=== PATIENT | male | born 1980 | race Caucasian/White ===

== ENCOUNTER 2020-01-19 15:30 | Inpatient (IN) | payer OTHER ==
[2020-01-19] VITALS (8 sets, daily range): BP systolic 112–166; BP diastolic 65–88
[~2020-01-19] VITALS: Ht 193 cm; Wt 129.9 kg
[2020-01-19] MEDS ORDERED: HEPARIN for IV BOLUS 10,000 UNIT/10 ML VIAL. IV ONE (15:35)
--- NOTE | 2020-01-19 16:08 | PHYS DOC ---
Past Medical History Past Medical History: No Pertinent History (Does not see primary care chichomireya meghan, unknown medical history) Past Surgical History: No Surgical History Smoking Status: Current Every Day Smoker Alcohol Use: None Drug Use: None General Adult EDM: Chief Complaint: CHEST PAIN HPI: HPI: Patient is a 39 year old male who presents with lightheaded and dizziness. 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 He reportedly started feeling lightheaded, dizzy, and "felt like a bag of crap". Up until presentation, denied any overt chest pain. Patient went inside and due to ongoing symptoms, EMS was called by coworkers. On arrival, EMS reported elevated POC glucose greater than 500. An abnormal EKG was obtained and because of this, patient was diverted from [facility] to [facility]. Patient was administered 1L LR in route, no other intervention performed Review of Systems: Review of Systems: Constitutional: Denies fever or chills. Admits diaphoresis Eyes: Denies change in visual acuity. HENT: Denies nasal congestion or sore throat. Respiratory: Denies cough. Admits shortness of breath Cardiovascular: Denies chest pain or edema. GI: Denies abdominal pain, vomiting, bloody stools or diarrhea. Admits nausea : Denies dysuria. Musculoskeletal: Denies back pain or joint pain. Integument: Denies rash. Neurologic: Denies focal weakness or sensory changes. Admits mild headache Endocrine: Denies polyuria or polydipsia. Lymphatic: Denies swollen glands. Psychiatric: Denies depression or anxiety. Heart Score: HEART Score for Chest Pain: HEART Score for Chest Pain Response (Comments) Value History Highly Suspicious [address] Depression 2 Age < 45 0 Risk Factors >3 Risk Factors or Hx CAD 2 Troponin < Normal Limit 0 Total 6 Risk Factors: Risk Factors: DM, Current or recent (<one month) smoker, HTN, HLP, family history of CAD, obesity. Risk Scores: Score 0 - 3: 2.5% MACE over next 6 weeks - Discharge Home Score 4 - 6: 20.3% MACE over next 6 weeks - Admit for Clinical Observation Score 7 - 10: 72.7% MACE over next 6 weeks - Early Invasive Strategies Family History: Family History: Patient admits positive cardiac history in both mom and dad Current Medications: Current Medications Medications (Trade) Dose Ordered Sig/[place] Start Time Stop Time Status Last Admin Dose Admin Heparin Sodium (Porcine) (Heparin Sodium) 4,000 unit 1X ONCE 01/19/20 15:35 01/19/20 15:36 UNV 01/19/20 15:36 4,000 UNIT Allergies: Allergies: Allergies Coded Allergies Type Severity Reaction Last Updated Verified No Known Drug Allergies 01/19/20 No Physical Exam: PE: Constitutional: Well nourished, appears in moderate distress, diaphoretic, toxic appearing HENT: Normocephalic, atraumatic, bilateral external ears normal, oropharynx jd st, no oral exudates, nose normal. Eyes: PERRLA, EOMI, conjunctiva normal, no discharge. Neck: Normal range of motion, no tenderness, supple, no stridor. Cardiovascular:Heart rate regular rhythm, no murmur Lungs & Thorax: Bilateral breath sounds clear to auscultation Abdomen: Bowel sounds normal, soft, no tenderness, no masses, no pulsatile masses. Skin: Warm, diaphoretic, no erythema, no rash. Back: No tenderness, no CVA tenderness. Extremities: No tenderness, no cyanosis, no clubbing, ROM intact, no edema. Neurologic: Alert and oriented X 3, normal motor function, normal sensory function, no focal deficits noted. Psychologic: Anxious appearing, judgment normal, full capacity Current Patient Data: Vital Signs: Vital Signs Date Time Temp Pulse Resp B/P (MAP) Pulse Ox O2 Delivery O2 Flow Rate FiO2 01/19/20 15:30 98.7 84 20 130/68 (88) 100 Room Air 98.7 EKG: EKG: EMS EKG sent to our emergency department and interpreted by myself at 1452 as findings indicative of acute STEMI with ST elevation in leads II, 3, aVF with reciprocal changes in lateral leads. No axis deviation, intervals within appropriate limits. Repeat EKG was performed in room with myself and Dr. Hu present, confirmed STEMI findings in inferior leads. Please defer to Dr. Luna's EKG report for more detail Course & Med Decision Making: Course & Med Decision Making Pertinent outlying labs and Imaging studies reviewed. (See chart for details) Code STEMI called by myself prior to patient arrival. Patient greeted at doors of [facility] by myself and Dr. Luna. Extensive history and physical exam performed. After repeat EKG concerning for inferior STEMI, patient given 162 mg of aspirin, heparin bolused, and taken to [facility] immediately. On-call hospitalist called, case discussed regarding inferior STEMI and findings of elevated glucose and later reported hyperkalemia (6.7) when patient was in the [facility]. Discussed that patient had no known/previously diagnosed medical history as he does not seek care in outpatient setting. Patient to be admitted in inpatient status in CVICU for further care under Dr. Blayne Nettles Disclaimer: Tho Disclaimer: This electronic medical record was generated, in whole or in part, using a voice recognition dictation system. Departure Departure Impression: Primary Impression: ST elevation (STEMI) myocardial infarction Additional Impressions: Hyperglycemia Hyperkalemia Tobacco use Disposition: ADMITTED INPATIENT Admitting Physician: TOM Botello) Condition: CRITICAL Justicifation of Admission Dx: Justifications for Admission: Justification of Admission Dx: Yes RI: Acute STEMI BRITANY ROMEO DO Jan 19, 2020 16:07
[2020-01-19 16:09] LABS: BASO % 0 % (0-3); EOS # 0.1 x10^3/uL (0.0-0.7); EOS % 1 % (0-3); HEMATOCRIT 45.7 % (39.0-53.0); LYMPH # 1.9 x10^3/uL (1.0-4.8); LYMPH % 18 % (24-48); MEAN CORPUSCULAR HEMOGLOBIN 31 pg (25-35); MEAN CORPUSCULAR HGB CONC 35 g/dL (31-37); MEAN CORPUSCULAR VOLUME 89 fL (79-100); MONO # 0.9 x10^3/uL (0.0-1.1); MONO % 8 % (0-9); NEUT # 7.6 x10^3/uL (1.8-7.7); NEUT % 72 % (31-73); PLATELET COUNT 265 x10^3/uL (140-400); RED BLOOD COUNT 5.14 x10^6/uL (4.30-5.70); RED CELL DISTRIBUTION WIDTH 13.2 % (11.5-14.5); WHITE BLOOD COUNT 10.6 x10^3/uL (4.0-11.0)
[2020-01-19] MEDS ORDERED: BIVALIRUDIN 250 MG VIAL. IV ONE ×2 (16:17→16:30)
[2020-01-19 16:19] LABS: PROTHROMBIN TIME PATIENT 13.6 SEC (11.7-14.0)
[2020-01-19 16:23] LABS: ALBUMIN 4.7 g/dL (3.4-5.0); ALBUMIN/GLOBULIN RATIO 1.4 (1.0-1.7); CALCIUM 9.5 mg/dL (8.5-10.1); CREATININE 2.6 mg/dL (0.7-1.3); GFR 27.3; TOTAL BILIRUBIN 0.7 mg/dL (0.2-1.0); TOTAL PROTEIN 8.1 g/dL (6.4-8.2)
[2020-01-19 16:30] LABS: POTASSIUM 6.4 mmol/L (3.5-5.1)
[2020-01-19] MEDS ORDERED: IV NORMAL SALINE 1000ML BAG 1,000 ML IV ONE (16:30)
[2020-01-19] MEDS ORDERED: MIDAZOLAM HCL/PF 2 MG/2 ML VIAL. IV ONE (16:30)
[2020-01-19] MEDS ORDERED: LIDOCAINE 1% Multi-Dose 20 ML VIAL. INJ ONE (16:30)
[2020-01-19] MEDS ORDERED: ASPIRIN 325 MG TABLET PO ONE (16:30)
[2020-01-19] MEDS ORDERED: fentaNYL PF VIAL 100 MCG/2 ML VIAL IV ONE (16:30)
[2020-01-19] MEDS ORDERED: IODIXANOL 320 MG/ML 100 ML VIAL. IART ONE (16:30)
[2020-01-19] MEDS ORDERED: ASPIRIN 325 MG TABLET ONE (16:43)
[2020-01-19] MEDS ORDERED: TICAGRELOR 90 MG TABLET. ONE (16:43)
[2020-01-19] MEDS ORDERED: fentaNYL PF VIAL 100 MCG/2 ML VIAL ONE (16:44)
[2020-01-19] MEDS ORDERED: guaiFENesin ORAL 200 MG/10 ML LIQUID. PO PRN ×2 (16:45→18:00)
[2020-01-19] MEDS ORDERED: DOCUSATE SODIUM 100 MG CAPSULE. PO PRN ×2 (16:45→18:00)
[2020-01-19] MEDS ORDERED: MIDAZOLAM HCL/PF 2 MG/2 ML VIAL. ONE (16:45)
[2020-01-19] MEDS ORDERED: LORazepam 0.5 MG TABLET PO PRN ×2 (16:45→18:00)
[2020-01-19] MEDS ORDERED: DEXTROSE 50% 25 GM / 50ML DISP.SYRIN. IV PRN ×2 (16:45→18:00)
[2020-01-19] MEDS ORDERED: ACETAMINOPHEN 325 MG TABLET. PO PRN ×2 (16:45→18:00)
[2020-01-19] MEDS ORDERED: ZOLPIDEM 5 MG TABLET. PO PRN ×2 (16:45→18:00)
[2020-01-19] MEDS ORDERED: INSULIN REGULAR 100 UNIT/ML 3ML VIAL. IV ONE ×3 (16:45→19:00)
[2020-01-19] MEDS ORDERED: CALCIUM GLUCONATE 1,000 MG/10 ML VIAL. IVP ONE (16:45)
[2020-01-19] MEDS ORDERED: SODIUM BICARB ADULT 8.4% 50 MEQ/50 ML DISP.SYRIN. IV ONE (16:45)
[2020-01-19] MEDS ORDERED: ALBUTEROL SULFATE 2.5 MG/3 ML NEBU. NEB PRN ×2 (16:45→18:00)
[2020-01-19] MEDS ORDERED: TICAGRELOR 90 MG TABLET. PO ONE (16:45)
[2020-01-19] MEDS ORDERED: ONDANSETRON PF 4 MG/2 ML VIAL. IV PRN ×2 (16:45→18:00)
--- NOTE | 2020-01-19 16:45 | PDOC1 ---
History and Physical Date of Admission Date of Admission 01/19/2020 Identification/Chief Complaint Chief Complaint Chest pain Problems: (1) Hyperkalemia (2) Hyperglycemia (3) Tobacco use (4) ST elevation (STEMI) myocardial infarction Source Source: Chart review, Patient History of Present Illness History of Present Illness Patient is a 39-year-old gentleman with no significant past medical history except obesity who was in his usual state of health until today when he was working outside and he experienced lightheadedness. He thought it was the heat health a day given him the discomfort. He tried to go into a building cool off and come right back outside to work unfortunately patient continued to have lightheadedness and thought he was about to lose consciousness. His boss told him to seek medical attention and he started walking towards his truck when his symptoms got worse and he was unable to continue walking so he dropped his stool box managed to get into his truck where he pretty much collapsed. EMS was summoned to the scene and he was transported to our emergency department where he was found to have an acute ST elevation myocardial infarction. The patient is being seen post cardiac catheterization and is in no acute distress. I have discussed the results of his laboratory data his hypoglycemia and renal dysfunction. Reassurance has been provided all of his concerns were addressed to the best of my abilities, his father is at bedside. Patient was taken to the cardiac [facility] with the following results: Current Medications Current Medications Current Medications Medications (Trade) Dose Ordered Sig/[facility] Start Time Stop Time Status Last Admin Dose Admin Aspirin (Claus Aspirin) 325 mg 1X ONCE 01/19/20 16:30 01/19/20 16:32 DC Bivalirudin (Angiomax) 250 mg 1X ONCE 01/19/20 16:30 01/19/20 16:32 DC Fentanyl Citrate (Fentanyl 2ml Vial) 100 mcg 1X ONCE 01/19/20 16:30 01/19/20 16:32 DC Heparin Sodium (Porcine) (Heparin Sodium) 4,000 unit 1X ONCE 01/19/20 15:35 01/19/20 16:08 DC 01/19/20 15:36 4,000 UNIT Heparin Sodium/ Sodium Chloride (HEPARIN for ARTERIAL LINE FLUSH) 1,000 unit 1X ONCE 01/19/20 16:30 01/19/20 16:32 DC Iodixanol (Visipaque 320) 100 ml 1X ONCE 01/19/20 16:30 01/19/20 16:32 DC Lidocaine HCl (Lidocaine 1% 20ml Vial) 20 ml 1X ONCE 01/19/20 16:30 01/19/20 16:32 DC Midazolam HCl (Versed) 2 mg 1X ONCE 01/19/20 16:30 01/19/20 16:32 DC Sodium Chloride 1,000 ml @ 100 mls/hr 1X ONCE 01/19/20 16:30 01/20/20 02:29 Allergies Allergies Allergies Coded Allergies Type Severity Reaction Last Updated Verified No Known Drug Allergies 01/19/20 No ROS Review of System CONSTITUTIONAL: No fever or chills EYES: No recent changes SKIN: No rash or itching CARDIOVASCULAR: No chest pain, syncope, palpitations, or edema RESPIRATORY: No SOB or cough GASTROINTESTINAL: No nausea, vomiting or abdominal pain NEUROLOGICAL: No headaches or weakness ENDOCRINE: No cold or heat intolerance GENITOURINARY: No urgency or frequency of urination MUSCULOSKELETAL: No back pain or joint pain LYMPHATICS: No enlarged lymph nodes PSYCHIATRIC: No anxiety or depression Physical Exam Physical Exam GEN.: No apparent distress. Alert and oriented. HEENT: Head is normocephalic, atraumatic NECK: Supple. LUNGS: Clear to auscultation. HEART: RRR, S1, S2 present. Peripheral pulses intact ABDOMEN: Soft, nontender. Positive bowel sounds. EXTREMITIES: Without any cyanosis. NEUROLOGIC: Normal speech, normal tone PSYCHIATRIC: Normal affect, normal mood. SKIN: No ulcerations Vitals Vitals Vital Signs Date Time Temp Pulse Resp B/P (MAP) Pulse Ox O2 Delivery O2 Flow Rate FiO2 01/19/20 15:40 91 18 148/79 (102) 100 Room Air 01/19/20 15:30 98.7 98.7 Labs Labs Laboratory Tests Test 01/19/20 15:38 White Blood Count 10.6 x10^3/uL (4.0-11.0) Red Blood Count 5.14 x10^6/uL (4.30-5.70) Hemoglobin 16.0 g/dL (13.0-17.5) Hematocrit 45.7 % (39.0-53.0) Mean Corpuscular Volume 89 fL (79-100) Mean Corpuscular Hemoglobin 31 pg (25-35) Mean Corpuscular Hemoglobin Concent 35 g/dL (31-37) Red Cell Distribution Width 13.2 % (11.5-14.5) Platelet Count 265 x10^3/uL (140-400) Neutrophils (%) (Auto) 72 % (31-73) Lymphocytes (%) (Auto) 18 % (24-48) Monocytes (%) (Auto) 8 % (0-9) Eosinophils (%) (Auto) 1 % (0-3) Basophils (%) (Auto) 0 % (0-3) Neutrophils # (Auto) 7.6 x10^3/uL (1.8-7.7) Lymphocytes # (Auto) 1.9 x10^3/uL (1.0-4.8) Monocytes # (Auto) 0.9 x10^3/uL (0.0-1.1) Eosinophils # (Auto) 0.1 x10^3/uL (0.0-0.7) Basophils # (Auto) 0.0 x10^3/uL (0.0-0.2) Prothrombin Time 13.6 SEC (11.7-14.0) Prothromb Time International Ratio 1.1 (0.8-1.1) Activated Partial Thromboplast Time 43 SEC (24-38) Sodium Level 131 mmol/L (136-145) Potassium Level 6.4 mmol/L (3.5-5.1) Chloride Level 94 mmol/L (98-107) Carbon Dioxide Level 26 mmol/L (21-32) Anion Gap 11 (6-14) Blood Urea Nitrogen 19 mg/dL (8-26) Creatinine 2.6 mg/dL (0.7-1.3) Estimated GFR (Cockcroft-Gault) 27.3 BUN/Creatinine Ratio 7 (6-20) Glucose Level 494 mg/dL (70-99) Calcium Level 9.5 mg/dL (8.5-10.1) Total Bilirubin 0.7 mg/dL (0.2-1.0) Aspartate Amino Transf (AST/SGOT) 87 U/L (15-37) Alanine Aminotransferase (ALT/SGPT) 198 U/L (16-63) Alkaline Phosphatase 70 U/L (46-116) Troponin I Quantitative < 0.017 ng/mL (0.000-0.055) PD-Ynm-Z-Type Natriuretic Peptide 85 pg/mL (0-124) Total Protein 8.1 g/dL (6.4-8.2) Albumin 4.7 g/dL (3.4-5.0) Albumin/Globulin Ratio 1.4 (1.0-1.7) Laboratory Tests Test 01/19/20 15:38 White Blood Count 10.6 x10^3/uL (4.0-11.0) Red Blood Count 5.14 x10^6/uL (4.30-5.70) Hemoglobin 16.0 g/dL (13.0-17.5) Hematocrit 45.7 % (39.0-53.0) Mean Corpuscular Volume 89 fL (79-100) Mean Corpuscular Hemoglobin 31 pg (25-35) Mean Corpuscular Hemoglobin Concent 35 g/dL (31-37) Red Cell Distribution Width 13.2 % (11.5-14.5) Platelet Count 265 x10^3/uL (140-400) Neutrophils (%) (Auto) 72 % (31-73) Lymphocytes (%) (Auto) 18 % (24-48) Monocytes (%) (Auto) 8 % (0-9) Eosinophils (%) (Auto) 1 % (0-3) Basophils (%) (Auto) 0 % (0-3) Neutrophils # (Auto) 7.6 x10^3/uL (1.8-7.7) Lymphocytes # (Auto) 1.9 x10^3/uL (1.0-4.8) Monocytes # (Auto) 0.9 x10^3/uL (0.0-1.1) Eosinophils # (Auto) 0.1 x10^3/uL (0.0-0.7) Basophils # (Auto) 0.0 x10^3/uL (0.0-0.2) Prothrombin Time 13.6 SEC (11.7-14.0) Prothromb Time International Ratio 1.1 (0.8-1.1) Activated Partial Thromboplast Time 43 SEC (24-38) Sodium Level 131 mmol/L (136-145) Potassium Level 6.4 mmol/L (3.5-5.1) Chloride Level 94 mmol/L (98-107) Carbon Dioxide Level 26 mmol/L (21-32) Anion Gap 11 (6-14) Blood Urea Nitrogen 19 mg/dL (8-26) Creatinine 2.6 mg/dL (0.7-1.3) Estimated GFR (Cockcroft-Gault) 27.3 BUN/Creatinine Ratio 7 (6-20) Glucose Level 494 mg/dL (70-99) Calcium Level 9.5 mg/dL (8.5-10.1) Total Bilirubin 0.7 mg/dL (0.2-1.0) Aspartate Amino Transf (AST/SGOT) 87 U/L (15-37) Alanine Aminotransferase (ALT/SGPT) 198 U/L (16-63) Alkaline Phosphatase 70 U/L (46-116) Troponin I Quantitative < 0.017 ng/mL (0.000-0.055) VZ-Gej-G-Type Natriuretic Peptide 85 pg/mL (0-124) Total Protein 8.1 g/dL (6.4-8.2) Albumin 4.7 g/dL (3.4-5.0) Albumin/Globulin Ratio 1.4 (1.0-1.7) VTE Prophylaxis Ordered VTE Prophylaxis Devices: Yes VTE Pharmacological Prophylaxi: Yes Assessment/Plan Assessment/Plan Chest pain Status post cardiac catheterization PCI and stenting of the RCA Obesity with a BMI of 36 Hyperglycemia most likely new onset diabetes mellitus Acute renal failure Hyperkalemia secondary to the above Plan: Lasix calcium gluconate insulin therapy will check hemoglobin a1c lipid panel in the am further recommendations based on clinical course. Justicifation of Admission Dx: Justifications for Admission: Justification of Admission Dx: Comment: [place]: Acute STEMI MEL HYATT MD Jan 19, 2020 16:45
[2020-01-19 16:56] LABS: CALCIUM 8.7 mg/dL (8.5-10.1); CREATININE 2.3 mg/dL (0.7-1.3); GFR 31.5; POTASSIUM 5.7 mmol/L (3.5-5.1)
[2020-01-19] MEDS ORDERED: INSULIN LISPRO 300 UNITS/3 ML VIAL. SQ SCH (17:00)
[2020-01-19] MEDS: IV NORMAL SALINE 1000ML BAG 1,000 ML IV SCH (17:24)
--- NOTE | 2020-01-19 17:24 | PDOC2 ---
CONSULT Date of Consult Date of Consult DATE: 01/19/20 TIME: 17:18 Reason for Consult Reason for Consult: Dizziness and EKG consistent with an inferior ST elevated myocardial infarction Referring Physician Referring Physician: Dr. Cisneros Identification/Chief Complaint Chief Complaint Dizziness and lightheadedness Source Source: Chart review, Patient History of Present Illness Reason for Visit: The patient is a 39-year-old male who is been working outside throughout the day. He developed episodes of dizziness and lightheadedness and mild chest discomfort. Paramedics were called and his glucose was found to be greater than 500. His EKG showed ST elevation in the inferior leads. He was transported emergently to [place] emergency room and was met there upon arrival. The patient reported dizziness and lightheadedness. He did not have chest pain upon arrival. Immediate EKG again confirmed ST elevation in inferior leads. Heparin and aspirin were administered. Past Medical History Cardiovascular: HTN Past Surgical History Past Surgical History: No pertinent history Family History Family History: Hypertension Social History 1 pack per day ALCOHOL: none Current Problem List Problem List Problems Medical Problems: (1) Hyperglycemia Status: Acute (2) Hyperkalemia Status: Acute (3) ST elevation (STEMI) myocardial infarction Status: Acute (4) Tobacco use Status: Acute Current Medications Current Medications Current Medications Heparin Sodium (Porcine) (Heparin Sodium) 4,000 unit 1X ONCE IV Last adminis tered on 01/19/20at 15:36; Start 01/19/20 at 15:35; Stop 01/19/20 at 16:08; Status DC Bivalirudin (Angiomax) 250 mg STK-MED ONCE IV ; Start 01/19/20 at 16:17; Stop 01/19/20 at 16:17; Status DC Heparin Sodium/ Sodium Chloride (HEPARIN for ARTERIAL LINE FLUSH) 1,000 unit 1X ONCE IART Last administered on 01/19/20at 16:53; Start 01/19/20 at 16:30; Stop 01/19/20 at 16:32; Status DC Heparin Sodium/ Sodium Chloride (HEPARIN for ARTERIAL LINE FLUSH) 1,000 unit 1X ONCE IART Last administered on 01/19/20at 16:54; Start 01/19/20 at 16:30; Stop 01/19/20 at 16:32; Status DC Midazolam HCl (Versed) 2 mg 1X ONCE IV Last administered on 01/19/20at 16:54; Start 01/19/20 at 16:30; Stop 01/19/20 at 16:32; Status DC Fentanyl Citrate (Fentanyl 2ml Vial) 100 mcg 1X ONCE IV Last administered on 01/19/20at 16:55; Start 01/19/20 at 16:30; Stop 01/19/20 at 16:32; Status DC Iodixanol (Visipaque 320) 100 ml 1X ONCE IART Last administered on 01/19/20at 16:55; Start 01/19/20 at 16:30; Stop 01/19/20 at 16:32; Status DC Bivalirudin (Angiomax) 250 mg 1X ONCE IV Last administered on 01/19/20at 16:54; Start 01/19/20 at 16:30; Stop 01/19/20 at 16:32; Status DC Aspirin (Neighbor.ly Aspirin) 325 mg 1X ONCE PO Last administered on 01/19/20 16:54; Start 01/19/20 at 16:30; Stop 01/19/20 at 16:32; Status DC Lidocaine HCl (Lidocaine 1% 20ml Vial) 20 ml 1X ONCE INJ Last administered on 01/19/20at 16:54; Start 01/19/20 at 16:30; Stop 01/19/20 at 16:32; Status DC Sodium Chloride 1,000 ml @ 100 mls/hr 1X ONCE IV Last administered on 01/19/20at 16:05; Start 01/19/20 at 16:30; Stop 01/20/20 at 02:29 Ticagrelor (Brilinta) 180 mg 1X ONCE PO Last administered on 01/19/20at 16:54; Start 01/19/20 at 16:45; Stop 01/19/20 at 16:46; Status DC Ticagrelor (Brilinta) 90 mg STK-MED ONCE .ROUTE ; Start 01/19/20 at 16:43; Stop 01/19/20 at 16:43; Status DC Aspirin (Claus Aspirin) 325 mg STK-MED ONCE .ROUTE ; Start 01/19/20 at 16:43; Stop 01/19/20 at 16:43; Status DC Fentanyl Citrate (Fentanyl 2ml Vial) 100 mcg STK-MED ONCE .ROUTE ; Start 01/19/20 at 16:44; Stop 01/19/20 at 16:45; Status DC Midazolam HCl (Versed) 2 mg STK-MED ONCE .ROUTE ; Start 01/19/20 at 16:45; Stop 01/19/20 at 16:45; Status DC Ondansetron HCl (Zofran) 4 mg PRN Q4HRS PRN IV NAUSEA/VOMITING; Start 01/19/20 at 16:45 Zolpidem Tartrate (Ambien) 5 mg PRN QHS PRN PO INSOMNIA; Start 01/19/20 at 16:45 Acetaminophen (Tylenol) 650 mg PRN Q4HRS PRN PO TEMP OVER 100.4F OR MILD PAIN; Start 01/19/20 at 16:45 Docusate Sodium (Colace) 100 mg PRN BID PRN PO HARD STOOLS; Start 01/19/20 at 16:45 Albuterol Sulfate (Ventolin Neb Soln) 2.5 mg PRN Q4HRS PRN NEB SHORTNESS OF BREATH; Start 01/19/20 at 16:45 Guaifenesin (Robitussin) 200 mg PRN Q4HRS PRN PO COUGH; Start 01/19/20 at 16:45 Lorazepam (Ativan) 0.5 mg PRN Q4HRS PRN PO ANXIETY / AGITATION; Start 01/19/20 at 16:45 Insulin Human Lispro (HumaLOG) 0-7 UNITS TIDWMEALS SQ ; Start 01/19/20 at 17:00 Dextrose (Dextrose 50%-Water Syringe) 12.5 gm PRN Q15MIN PRN IV SEE COMMENTS; Start 01/19/20 at 16:45 Calcium Gluconate (Calcium Gluconate) 1,000 mg 1X ONCE IVP ; Start 01/19/20 at 16:45; Stop 01/19/20 at 17:03; Status DC Sodium Bicarbonate (Sodium Bicarb Adult 8.4% Syr) 50 meq 1X ONCE IV ; Start 01/19/20 at 16:45; Stop 01/19/20 at 17:03; Status DC Furosemide (Lasix) 40 mg BID92 IVP ; Start 01/19/20 at 16:45 Insulin Human Regular (HumuLIN R VIAL) 10 unit 1X ONCE IV ; Start 01/19/20 at 16:45; Stop 01/19/20 at 17:03; Status DC Allergies Allergies: Coded Allergies: No Known Drug Allergies (Unverified , 01/19/20) ROS General: YES: Fatigue Cardiovascular: yes Chest Pain, yes Lt Headedness Neurological: Yes Dizziness Physical Exam General: mild distress HEENT: Atraumatic Lungs: Clear to auscultation Heart: Regular rate Abdomen: Normal bowel sounds Vitals VITALS Vital Signs Date Time Temp Pulse Resp B/P (MAP) Pulse Ox O2 Delivery O2 Flow Rate FiO2 01/19/20 16:55 16 98 Nasal Cannula 2.0 01/19/20 15:40 91 148/79 (102) 01/19/20 15:30 98.7 98.7 Labs Labs Laboratory Tests Test 01/19/20 15:38 01/19/20 16:40 White Blood Count 10.6 x10^3/uL (4.0-11.0) Red Blood Count 5.14 x10^6/uL (4.30-5.70) Hemoglobin 16.0 g/dL (13.0-17.5) Hematocrit 45.7 % (39.0-53.0) Mean Corpuscular Volume 89 fL (79-100) Mean Corpuscular Hemoglobin 31 pg (25-35) Mean Corpuscular Hemoglobin Concent 35 g/dL (31-37) Red Cell Distribution Width 13.2 % (11.5-14.5) Platelet Count 265 x10^3/uL (140-400) Neutrophils (%) (Auto) 72 % (31-73) Lymphocytes (%) (Auto) 18 % (24-48) Monocytes (%) (Auto) 8 % (0-9) Eosinophils (%) (Auto) 1 % (0-3) Basophils (%) (Auto) 0 % (0-3) Neutrophils # (Auto) 7.6 x10^3/uL (1.8-7.7) Lymphocytes # (Auto) 1.9 x10^3/uL (1.0-4.8) Monocytes # (Auto) 0.9 x10^3/uL (0.0-1.1) Eosinophils # (Auto) 0.1 x10^3/uL (0.0-0.7) Basophils # (Auto) 0.0 x10^3/uL (0.0-0.2) Prothrombin Time 13.6 SEC (11.7-14.0) Prothromb Time International Ratio 1.1 (0.8-1.1) Activated Partial Thromboplast Time 43 SEC (24-38) Sodium Level 131 mmol/L (136-145) 129 mmol/L (136-145) Potassium Level 6.4 mmol/L (3.5-5.1) 5.7 mmol/L (3.5-5.1) Chloride Level 94 mmol/L (98-107) 94 mmol/L (98-107) Carbon Dioxide Level 26 mmol/L (21-32) 24 mmol/L (21-32) Anion Gap 11 (6-14) 11 (6-14) Blood Urea Nitrogen 19 mg/dL (8-26) 19 mg/dL (8-26) Creatinine 2.6 mg/dL (0.7-1.3) 2.3 mg/dL (0.7-1.3) Estimated GFR (Cockcroft-Gault) 27.3 31.5 BUN/Creatinine Ratio 7 (6-20) Glucose Level 494 mg/dL (70-99) 474 mg/dL (70-99) Calcium Level 9.5 mg/dL (8.5-10.1) 8.7 mg/dL (8.5-10.1) Total Bilirubin 0.7 mg/dL (0.2-1.0) Aspartate Amino Transf (AST/SGOT) 87 U/L (15-37) Alanine Aminotransferase (ALT/SGPT) 198 U/L (16-63) Alkaline Phosphatase 70 U/L (46-116) Troponin I Quantitative < 0.017 ng/mL (0.000-0.055) BG-Xdq-A-Type Natriuretic Peptide 85 pg/mL (0-124) Total Protein 8.1 g/dL (6.4-8.2) Albumin 4.7 g/dL (3.4-5.0) Albumin/Globulin Ratio 1.4 (1.0-1.7) Laboratory Tests Test 01/19/20 15:38 01/19/20 16:40 White Blood Count 10.6 x10^3/uL (4.0-11.0) Red Blood Count 5.14 x10^6/uL (4.30-5.70) Hemoglobin 16.0 g/dL (13.0-17.5) Hematocrit 45.7 % (39.0-53.0) Mean Corpuscular Volume 89 fL (79-100) Mean Corpuscular Hemoglobin 31 pg (25-35) Mean Corpuscular Hemoglobin Concent 35 g/dL (31-37) Red Cell Distribution Width 13.2 % (11.5-14.5) Platelet Count 265 x10^3/uL (140-400) Neutrophils (%) (Auto) 72 % (31-73) Lymphocytes (%) (Auto) 18 % (24-48) Monocytes (%) (Auto) 8 % (0-9) Eosinophils (%) (Auto) 1 % (0-3) Basophils (%) (Auto) 0 % (0-3) Neutrophils # (Auto) 7.6 x10^3/uL (1.8-7.7) Lymphocytes # (Auto) 1.9 x10^3/uL (1.0-4.8) Monocytes # (Auto) 0.9 x10^3/uL (0.0-1.1) Eosinophils # (Auto) 0.1 x10^3/uL (0.0-0.7) Basophils # (Auto) 0.0 x10^3/uL (0.0-0.2) Prothrombin Time 13.6 SEC (11.7-14.0) Prothromb Time International Ratio 1.1 (0.8-1.1) Activated Partial Thromboplast Time 43 SEC (24-38) Sodium Level 131 mmol/L (136-145) 129 mmol/L (136-145) Potassium Level 6.4 mmol/L (3.5-5.1) 5.7 mmol/L (3.5-5.1) Chloride Level 94 mmol/L (98-107) 94 mmol/L (98-107) Carbon Dioxide Level 26 mmol/L (21-32) 24 mmol/L (21-32) Anion Gap 11 (6-14) 11 (6-14) Blood Urea Nitrogen 19 mg/dL (8-26) 19 mg/dL (8-26) Creatinine 2.6 mg/dL (0.7-1.3) 2.3 mg/dL (0.7-1.3) Estimated GFR (Cockcroft-Gault) 27.3 31.5 BUN/Creatinine Ratio 7 (6-20) Glucose Level 494 mg/dL (70-99) 474 mg/dL (70-99) Calcium Level 9.5 mg/dL (8.5-10.1) 8.7 mg/dL (8.5-10.1) Total Bilirubin 0.7 mg/dL (0.2-1.0) Aspartate Amino Transf (AST/SGOT) 87 U/L (15-37) Alanine Aminotransferase (ALT/SGPT) 198 U/L (16-63) Alkaline Phosphatase 70 U/L (46-116) Troponin I Quantitative < 0.017 ng/mL (0.000-0.055) OK-Cnf-L-Type Natriuretic Peptide 85 pg/mL (0-124) Total Protein 8.1 g/dL (6.4-8.2) Albumin 4.7 g/dL (3.4-5.0) Albumin/Globulin Ratio 1.4 (1.0-1.7) Assessment/Plan Assessment/Plan 1. Abnormal EKG consistent with an ST elevated myocardial infarction. Patient had minimal chest pain although he did have significant dizziness and lightheadedness. Glucose levels greater than 500. Repeat EKG again shows inferior ST elevation. Emergent cardiac catheterization and possible revascularization were discussed with the patient. Risks and benefits were discussed. Patient has given consent to proceed with catheterization and pos sible revascularization. 2. Glucose level greater than 500. Treatment as per the ER doctor. At the time of transporting the patient to the catheterization lab no other lab was available. FALGUNI HAWKINS MD Jan 19, 2020 17:24
[2020-01-19] MEDS ORDERED: ATROPINE 0.5 MG/5 ML DISP.SYRINGE. IV PRN (17:30)
[2020-01-19] MEDS ORDERED: AMIODARONE 150 MG in IV DEXTROSE 5% 100ML 100 ML IV PRN (17:30)
[2020-01-19] MEDS ORDERED: fentaNYL PF VIAL 100 MCG/2 ML VIAL IV PRN (17:30)
[2020-01-19] MEDS ORDERED: LIDOCAINE 2% 100 MG/5 ML SYRINGE. IV PRN (17:30)
[2020-01-19] MEDS ORDERED: NITROGLYCERIN SUBLINGUAL 0.4 MG BOTTLE OF 25. SL PRN (17:30)
[2020-01-19] MEDS ORDERED: 0.9 % SODIUM CHLORIDE 10 ML DISP.SYRIN. IV PRN (17:30)
[2020-01-19] MEDS: FUROSEMIDE 40 MG/4 ML VIAL. IVP SCH (18:33)
[2020-01-19] MEDS ORDERED: ATORVASTATIN CALCIUM 20 MG TABLET PO SCH (21:00)
[2020-01-19] MEDS: METOPROLOL TART IMMED RELEASE 25 MG TABLET. PO SCH (21:06)
[2020-01-20] VITALS (15 sets, daily range): BP systolic 118–140; BP diastolic 66–92
[2020-01-20] MEDS: IV NORMAL SALINE 1000ML BAG 1,000 ML IV SCH ×2 (04:25→16:40)
[2020-01-20 05:14] LABS: BASO # 0.1 x10^3/uL (0.0-0.2); BASO % 1 % (0-3); EOS # 0.2 x10^3/uL (0.0-0.7); EOS % 2 % (0-3); HEMATOCRIT 44.1 % (39.0-53.0); HEMOGLOBIN 15.4 g/dL (13.0-17.5); LYMPH # 2.2 x10^3/uL (1.0-4.8); LYMPH % 22 % (24-48); MEAN CORPUSCULAR HEMOGLOBIN 31 pg (25-35); MEAN CORPUSCULAR HGB CONC 35 g/dL (31-37); MEAN CORPUSCULAR VOLUME 88 fL (79-100); MONO # 0.7 x10^3/uL (0.0-1.1); MONO % 8 % (0-9); NEUT # 6.6 x10^3/uL (1.8-7.7); NEUT % 68 % (31-73); PLATELET COUNT 255 x10^3/uL (140-400); RED BLOOD COUNT 5.02 x10^6/uL (4.30-5.70); RED CELL DISTRIBUTION WIDTH 13.8 % (11.5-14.5); WHITE BLOOD COUNT 9.7 x10^3/uL (4.0-11.0)
[2020-01-20 05:31] LABS: CALCIUM 8.6 mg/dL (8.5-10.1); CREATININE 1.4 mg/dL (0.7-1.3); GFR 55.8
[2020-01-20 05:39] LABS: CHOLESTEROL/HDL RATIO 6.2
--- NOTE | 2020-01-20 06:51 | EKG ---
[facility] [address] [place] [address] Test Date: 2020-01-20 Test Time: 06:48:08 Pat Name: JOSE DE LA ROSA Department: Room: [facility] 1 Gender: M Heel Blacker: SUMAN : 1980 Requested By: FALGUNI HAWKINS Order Number: [id number] Reading MD: Measurements Intervals [place] Rate: 90 P: 39 MI: 182 QRS: -12 QRSD: 102 T: 34 QT: 360 QTc: 444 Interpretive Statements SINUS RHYTHM LEFTWARD AXIS R-S TRANSITION ZONE IN V LEADS DISPLACED TO THE LEFT QRS(T) CONTOUR ABNORMALITY CONSIDER INFERIOR MYOCARDIAL DAMAGE POSSIBLY ABNORMAL ECG RI6.02 No previous ECG available for comparison
[2020-01-20] MEDS: METOPROLOL TART IMMED RELEASE 25 MG TABLET. PO SCH ×2 (08:26→20:37)
[2020-01-20] MEDS: ASPIRIN ENTERIC COATED 81 MG TABLET.DR. PO SCH (08:26)
[2020-01-20] MEDS: FUROSEMIDE 40 MG/4 ML VIAL. IVP SCH (08:27)
[2020-01-20] MEDS: INSULIN LISPRO 300 UNITS/3 ML VIAL. SQ SCH ×3 (08:28→17:12)
[2020-01-20] MEDS: TICAGRELOR 90 MG TABLET. PO SCH ×2 (08:40→20:36)
--- NOTE | 2020-01-20 09:08 | PDOC ---
CARDIO Progress Notes Date and Time Date of Service 01/20/2020 Time of Evaluation 0930 Subjective Subjective: No Chest Pain, No shortness of breath, No Palpitations Vitals Vitals Vital Signs Date Time Temp Pulse Resp B/P (MAP) Pulse Ox O2 Delivery O2 Flow Rate FiO2 01/20/20 08:26 87 118/78 01/20/20 08:00 Room Air 01/20/20 08:00 97.5 18 97 97.5 01/19/20 17:50 2.0 Weight Weight [ ] Input and Output Intake and Output Intake and Output 01/20/20 07:00 Intake Total 1400 ml Output Total 650 ml Balance 750 ml Intake Oral 900 ml Other 500 ml Output Urine Total 650 ml Laboratory Labs Laboratory Tests Test 01/19/20 15:38 01/19/20 16:40 01/19/20 18:30 01/19/20 22:55 White Blood Count 10.6 x10^3/uL (4.0-11.0) Red Blood Count 5.14 x10^6/uL (4.30-5.70) Hemoglobin 16.0 g/dL (13.0-17.5) Hematocrit 45.7 % (39.0-53.0) Mean Corpuscular Volume 89 fL (79-100) Mean Corpuscular Hemoglobin 31 pg (25-35) Mean Corpuscular Hemoglobin Concent 35 g/dL (31-37) Red Cell Distribution Width 13.2 % (11.5-14.5) Platelet Count 265 x10^3/uL (140-400) Neutrophils (%) (Auto) 72 % (31-73) Lymphocytes (%) (Auto) 18 % (24-48) Monocytes (%) (Auto) 8 % (0-9) Eosinophils (%) (Auto) 1 % (0-3) Basophils (%) (Auto) 0 % (0-3) Neutrophils # (Auto) 7.6 x10^3/uL (1.8-7.7) Lymphocytes # (Auto) 1.9 x10^3/uL (1.0-4.8) Monocytes # (Auto) 0.9 x10^3/uL (0.0-1.1) Eosinophils # (Auto) 0.1 x10^3/uL (0.0-0.7) Basophils # (Auto) 0.0 x10^3/uL (0.0-0.2) Prothrombin Time 13.6 SEC (11.7-14.0) Prothromb Time International Ratio 1.1 (0.8-1.1) Activated Partial Thromboplast Time 43 SEC (24-38) Sodium Level 131 mmol/L (136-145) 129 mmol/L (136-145) Potassium Level 6.4 mmol/L (3.5-5.1) 5.7 mmol/L (3.5-5.1) Chloride Level 94 mmol/L (98-107) 94 mmol/L (98-107) Carbon Dioxide Level 26 mmol/L (21-32) 24 mmol/L (21-32) Anion Gap 11 (6-14) 11 (6-14) Blood Urea Nitrogen 19 mg/dL (8-26) 19 mg/dL (8-26) Creatinine 2.6 mg/dL (0.7-1.3) 2.3 mg/dL (0.7-1.3) Estimated GFR (Cockcroft-Gault) 27.3 31.5 BUN/Creatinine Ratio (-) Glucose Level 494 mg/dL (70-99) 474 mg/dL (70-99) Hemoglobin A1c 11.0 % (4.8-5.6) Calcium Level 9.5 mg/dL (8.5-10.1) 8.7 mg/dL (8.5-10.1) Total Bilirubin 0.7 mg/dL (0.2-1.0) Aspartate Amino Transf (AST/SGOT) 87 U/L (15-37) Alanine Aminotransferase (ALT/SGPT) 198 U/L (16-63) Alkaline Phosphatase 70 U/L (46-116) Troponin I Quantitative < 0.017 ng/mL (0.000-0.055) 7.308 ng/mL (0.000-0.055) AL-Lzb-F-Type Natriuretic Peptide 85 pg/mL (0-124) Total Protein 8.1 g/dL (6.4-8.2) Albumin 4.7 g/dL (3.4-5.0) Albumin/Globulin Ratio 1.4 (1.0-1.7) Glucose (Fingerstick) 388 mg/dL (70-99) Test 01/19/20 22:58 01/20/20 04:45 01/20/20 08:24 Glucose (Fingerstick) 330 mg/dL (70-99) 295 mg/dL (70-99) White Blood Count 9.7 x10^3/uL (4.0-11.0) Red Blood Count 5.02 x10^6/uL (4.30-5.70) Hemoglobin 15.4 g/dL (13.0-17.5) Hematocrit 44.1 % (39.0-53.0) Mean Corpuscular Volume 88 fL (79-100) Mean Corpuscular Hemoglobin 31 pg (25-35) Mean Corpuscular Hemoglobin Concent 35 g/dL (31-37) Red Cell Distribution Width 13.8 % (11.5-14.5) Platelet Count 255 x10^3/uL (140-400) Neutrophils (%) (Auto) 68 % (31-73) Lymphocytes (%) (Auto) 22 % (24-48) Monocytes (%) (Auto) 8 % (0-9) Eosinophils (%) (Auto) 2 % (0-3) Basophils (%) (Auto) 1 % (0-3) Neutrophils # (Auto) 6.6 x10^3/uL (1.8-7.7) Lymphocytes # (Auto) 2.2 x10^3/uL (1.0-4.8) Monocytes # (Auto) 0.7 x10^3/uL (0.0-1.1) Eosinophils # (Auto) 0.2 x10^3/uL (0.0-0.7) Basophils # (Auto) 0.1 x10^3/uL (0.0-0.2) Sodium Level 135 mmol/L (136-145) Potassium Level 4.0 mmol/L (3.5-5.1) Chloride Level 97 mmol/L (98-107) Carbon Dioxide Level 29 mmol/L (21-32) Anion Gap 9 (6-14) Blood Urea Nitrogen 21 mg/dL (8-26) Creatinine 1.4 mg/dL (0.7-1.3) Estimated GFR (Cockcroft-Gault) 55.8 Glucose Level 294 mg/dL (70-99) Calcium Level 8.6 mg/dL (8.5-10.1) Troponin I Quantitative 11.475 ng/mL (0.000-0.055) Triglycerides Level 288 mg/dL (0-150) Cholesterol Level 181 mg/dL (0-200) LDL Cholesterol, Calculated 94 mg/dL (0-100) VLDL Cholesterol, Calculated 58 mg/dL (0-40) Non-HDL Cholesterol Calculated 152 mg/dL (0-129) HDL Cholesterol 29 mg/dL (40-60) Cholesterol/HDL Ratio 6.2 Thyroid Stimulating Hormone (TSH) 0.640 uIU/mL (0.358-3.74) Physical Exam HEENT: Neck Supple W Full Motion Chest: Symmetric LUNGS: Clear to Auscultation Heart: S1S2, RRR (SR no significnat ecvtopies) Abdomen: Soft N/T Extremities: No Edema, No Calf Tenderness Neurology: alert, oriented, follow commands Other Exams Right groin arteriotomy site intact, no erythema, swelling, neurovascular status to bilateral LE intact. Assessment Assessment 1. Inferior STEMI: S/P PCI/COLIN to RCA 2. DLP 3. HTN: controlled 4. Suspected DM2 5 SYED with hyperkalemia: much improved 6. Mild Transminitis 7. Obesity Recommendations 1. ASA/brilinta 2. TTE, A1C, TSH, LFTs 3. GDMT initiated. Cardiac rehab Justicifation of Admission Dx: Justifications for Admission: Justification of Admission Dx: Comment: MA: Acute STEMI RUPAL CROOKS LEAN SIX SIGMA BLACK BELT Jan 20, 2020 09:08
[2020-01-20 09:38] LABS: ALBUMIN 4.1 g/dL (3.4-5.0); DIRECT BILIRUBIN 0.2 mg/dL (0.0-0.2); TOTAL BILIRUBIN 0.7 mg/dL (0.2-1.0)
--- NOTE | 2020-01-20 10:28 | EKG ---
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
--- NOTE | 2020-01-20 10:51 | CARD ---
MR#: [id number] Date of Study: 01/20/2020 Ordering Physician: RUPAL CROOKS, Referring Physician: RUPAL CROOKS Tech: Indira Carballo [facility] APPROVED REPORT EXAM: Two-dimensional and M-mode echocardiogram with Doppler and color Doppler. Other Information Quality : GoodLimitedTechnically LimitedExcellentGoodAverageFairPoor INDICATION STEMI 2D DIMENSIONS RVDd2.6 (2.9-3.5cm)Left Atrium(2D)3.9 (1.6-4.0cm) IVSd0.8 (0.7-1.1cm)Aortic Root(2D)3.8 (2.0-3.7cm) LVDd6.0 (3.9-5.9cm)LVOT Diameter2.5 (1.8-2.4cm) PWd0.8 (0.7-1.1cm)LVDs5.0 (2.5-4.0cm) FS (%) 17.6 %SV65.0 ml Aortic Valve AoV Peak Vinnie.115.8cm/sAoV VTI19.2cm AO Peak GR.5.4mmHgLVOT VTI 15.03cm AO Mean GR.3mmHgAVA (VTI)3.76cm2 Mitral Valve MV E Edlgihbi21.9cm/sMV DECEL [id number] MV A Smlpopeu79.3cm/sE/A Ratio0.8 TDI Lateral E' P. V12.49cm/sMedial E' P. V6.24cm/s E/Lateral E'5.0E/Medial E'9.9 Pulmonary Vein S1 Etemvgoe82.3cm/sS2 Xsutxuta93.23cm/s D2 Wiooqdel78.2cm/s LEFT VENTRICLE The Left Ventricle is borderline dilated. There is normal left ventricular wall thickness. Left ventr icle systolic function is slightly impaired. The Ejection Fraction is 45-50%. There is mild hypokines is in the inferior and septal jerome. Transmitral Doppler flow pattern is Grade I-abnormal relaxation pattern. RIGHT VENTRICLE The right ventricle is normal size. The right ventricular systolic function is normal. ATRIA The left atrium size is normal. The right atrium size is normal. The interatrial septum is intact wit h no evidence for an atrial septal defect or patent foramen ovale as noted on 2-D or Doppler imaging. AORTIC VALVE The aortic valve is normal in structure and function. Doppler and Color Flow revealed no significant aortic regurgitation. There is no significant aortic valvular stenosis. MITRAL VALVE The mitral valve is calcified but opens well. There is no evidence of mitral valve prolapse. There is no mitral valve stenosis. Doppler and Color Flow revealed no mitral valve regurgitation noted. TRICUSPID VALVE The tricuspid valve is normal in structure and function. Doppler and Color Flow revealed trace tricus pid valve regurgitation. There is no tricuspid valve stenosis. PULMONIC VALVE The pulmonary valve is normal in structure and function. Doppler and Color Flow revealed mild pulmoni c valvular regurgitation. There is no pulmonic valvular stenosis. GREAT VESSELS The aortic root is normal in size. The ascending aorta is mildly dilated at 3.6 cm. The IVC was not v isualized. PERICARDIAL EFFUSION There is no evidence of significant pericardial effusion. Critical Notification Critical Value: No <Conclusion> The Left Ventricle is borderline dilated. Left ventricle systolic function is slightly impaired. The Ejection Fraction is 45-50%. There is mild hypokinesis in the inferior and septal jerome. Doppler and Color Flow revealed no significant aortic regurgitation. There is no significant aortic valvular stenosis. Doppler and Color Flow revealed no mitral valve regurgitation noted. Doppler and Color Flow revealed trace tricuspid valve regurgitation. The ascending aorta is mildly dilated at 3.6 cm. Signed by : Dima Mccall MD Electronically Approved : 01/20/2020 10:50:19
--- NOTE | 2020-01-20 12:12 | CARD ---
MR#: [id number] Date of Study: 01/19/2020 Ordering Physician: FALGUNI MCCALL, Referring Physician: FALGUNI MCCALL, Tech: LONA PINGRIGOBERTOJONNATHAN APPROVED REPORT Procedures Selective coronary angiogram Drug-eluting stent placement to the right coronary artery The patient is a 39-year-old male who developed episodes of dizziness and lightheadedness along with mild chest discomfort while working. Paramedics were called. He was treated with fluids and his EKG showed inferior ST elevation. He was met in the emergency room. He had minimal chest discomfort bu t a repeat EKG showed continued ST elevation in the inferior leads. In this setting risks and benefi ts of cardiac catheterization and possible intervention were discussed. The patient gave consent to proceed. After informed consent was obtained the patient was brought to the heart catheterization lab. The ar ea of the right femoral artery was prepared in the usual manner with Betadine, sterile draping and lo cinda anesthetic. An 18-gauge needle was used to enter the right femoral artery, a wire placed and a 6 Ivorian sheath placed over the wire. An 18-gauge needle was used to enter the right femoral vein, a wire placed and a 5 Ivorian sheath placed over the wire. With the assistance of a J-wire a 6 Ivorian J L4 diagnostic catheter was advanced to the ascending aorta and used to engage the left system. Seque ntial injections of various views were obtained. A 6 Ivorian JR 4 with guide holes was then placed in the right coronary artery. Injection showed a large dominant right coronary artery. In its mid sec tion there was a greater than 70% eccentric lesion. In the setting of his EKG changes and symptoms w e proceeded to revascularize the right coronary artery. Angiomax as protocol was administered. A PT choice wire was used to cross the lesion. A 3.0 x 33 Xi ence Michelle stent was deployed with 1 inflation at 15 selena for 15 seconds. Post stent dilation was wi th an NC Euphora Rx 3.5 x 27 with an additional 2 inflations at 15 selena for 10 seconds. Residual lesi on was 0%. The guiding system was removed from the patient. Injection of the sheath showed normal p lacement. The arterial sheath was removed and sealed with an Angio-Seal product. The venous sheath was removed and sealed with direct pressure. The patient was then moved to the intensive care unit. Findings. Hemodynamics. Aortic root pressure of 124/84. Coronaries. Left main. The left main was a normal size vessel with no lesions. Left anterior descending. The left anterior descending was a moderate large vessel. It had mild mid to distal disease in the 20% range. Left circumflex. The left circumflex was a moderate size vessel with no lesions. Right coronary artery. The right coronary was a large dominant vessel. It had a mid greater than 70 % eccentric lesion. <Conclusion> Mild disease in the LAD. Eccentric greater than 70% lesion in the right coronary artery. Successful stenting of the right coronary artery with 0% residual. Signed by : Falguni Mccall MD Electronically Approved : 01/20/2020 12:11:55
--- NOTE | 2020-01-20 13:01 | NUR ---
Report called to OFELIA Sancehz. Pt moving to RM 200 with all of his belongings in two bags.
--- NOTE | 2020-01-20 13:10 | PDOC ---
[facility]GRESS NOTE Chief Complaint Chief Complaint Inferior STEMI History of Present Illness History of Present Illness 01/20/20 Patient seen and examined in the ICU Chart reviewed Discussed with RN Vitals/I&O Vitals/I&O: Vital Signs Date Time Temp Pulse Resp B/P (MAP) Pulse Ox O2 Delivery O2 Flow Rate FiO2 01/20/20 12:00 97.0 94 15 140/76 (97) 96 Room Air 97.0 01/19/20 17:50 2.0 I & O 01/19/20 01/19/20 01/20/20 15:00 23:00 07:00 Intake Total 1400 ml Output Total 650 ml 0 ml Balance -650 ml 1400 ml Physical Exam General: Alert, Cooperative, No acute distress, mild distress Heart: Regular rate, No murmurs Lungs: Clear Abdomen: Normal bowel sounds Extremities: Normal pulses Skin: No significant lesion Labs Labs: Laboratory Tests Test 01/19/20 15:38 01/19/20 16:40 01/19/20 18:30 01/19/20 22:55 White Blood Count 10.6 x10^3/uL (4.0-11.0) Red Blood Count 5.14 x10^6/uL (4.30-5.70) Hemoglobin 16.0 g/dL (13.0-17.5) Hematocrit 45.7 % (39.0-53.0) Mean Corpuscular Volume 89 fL (79-100) Mean Corpuscular Hemoglobin 31 pg (25-35) Mean Corpuscular Hemoglobin Concent 35 g/dL (31-37) Red Cell Distribution Width 13.2 % (11.5-14.5) Platelet Count 265 x10^3/uL (140-400) Neutrophils (%) (Auto) 72 % (31-73) Lymphocytes (%) (Auto) 18 % (24-48) Monocytes (%) (Auto) 8 % (0-9) Eosinophils (%) (Auto) 1 % (0-3) Basophils (%) (Auto) 0 % (0-3) Neutrophils # (Auto) 7.6 x10^3/uL (1.8-7.7) Lymphocytes # (Auto) 1.9 x10^3/uL (1.0-4.8) Monocytes # (Auto) 0.9 x10^3/uL (0.0-1.1) Eosinophils # (Auto) 0.1 x10^3/uL (0.0-0.7) Basophils # (Auto) 0.0 x10^3/uL (0.0-0.2) Prothrombin Time 13.6 SEC (11.7-14.0) Prothromb Time International Ratio 1.1 (0.8-1.1) Activated Partial Thromboplast Time 43 SEC (24-38) Sodium Level 131 mmol/L (136-145) 129 mmol/L (136-145) Potassium Level 6.4 mmol/L (3.5-5.1) 5.7 mmol/L (3.5-5.1) Chloride Level 94 mmol/L (98-107) 94 mmol/L (98-107) Carbon Dioxide Level 26 mmol/L (21-32) 24 mmol/L (21-32) Anion Gap 11 (6-14) 11 (6-14) Blood Urea Nitrogen 19 mg/dL (8-26) 19 mg/dL (8-26) Creatinine 2.6 mg/dL (0.7-1.3) 2.3 mg/dL (0.7-1.3) Estimated GFR (Cockcroft-Gault) 27.3 31.5 BUN/Creatinine Ratio 7 (6-20) Glucose Level 494 mg/dL (70-99) 474 mg/dL (70-99) Hemoglobin A1c 11.0 % (4.8-5.6) Calcium Level 9.5 mg/dL (8.5-10.1) 8.7 mg/dL (8.5-10.1) Total Bilirubin 0.7 mg/dL (0.2-1.0) Aspartate Amino Transf (AST/SGOT) 87 U/L (15-37) Alanine Aminotransferase (ALT/SGPT) 198 U/L (16-63) Alkaline Phosphatase 70 U/L (46-116) Troponin I Quantitative < 0.017 ng/mL (0.000-0.055) 7.308 ng/mL (0.000-0.055) IU-Eit-U-Type Natriuretic Peptide 85 pg/mL (0-124) Total Protein 8.1 g/dL (6.4-8.2) Albumin 4.7 g/dL (3.4-5.0) Albumin/Globulin Ratio 1.4 (1.0-1.7) Glucose (Fingerstick) 388 mg/dL (70-99) Test 01/19/20 22:58 01/20/20 04:45 01/20/20 08:24 01/20/20 12:26 Glucose (Fingerstick) 330 mg/dL (70-99) 295 mg/dL (70-99) 260 mg/dL (70-99) White Blood Count 9.7 x10^3/uL (4.0-11.0) Red Blood Count 5.02 x10^6/uL (4.30-5.70) Hemoglobin 15.4 g/dL (13.0-17.5) Hematocrit 44.1 % (39.0-53.0) Mean Corpuscular Volume 88 fL (79-100) Mean Corpuscular Hemoglobin 31 pg (25-35) Mean Corpuscular Hemoglobin Concent 35 g/dL (31-37) Red Cell Distribution Width 13.8 % (11.5-14.5) Platelet Count 255 x10^3/uL (140-400) Neutrophils (%) (Auto) 68 % (31-73) Lymphocytes (%) (Auto) 22 % (24-48) Monocytes (%) (Auto) 8 % (0-9) Eosinophils (%) (Auto) 2 % (0-3) Basophils (%) (Auto) 1 % (0-3) Neutrophils # (Auto) 6.6 x10^3/uL (1.8-7.7) Lymphocytes # (Auto) 2.2 x10^3/uL (1.0-4.8) Monocytes # (Auto) 0.7 x10^3/uL (0.0-1.1) Eosinophils # (Auto) 0.2 x10^3/uL (0.0-0.7) Basophils # (Auto) 0.1 x10^3/uL (0.0-0.2) Sodium Level 135 mmol/L (136-145) Potassium Level 4.0 mmol/L (3.5-5.1) Chloride Level 97 mmol/L (98-107) Carbon Dioxide Level 29 mmol/L (21-32) Anion Gap 9 (6-14) Blood Urea Nitrogen 21 mg/dL (8-26) Creatinine 1.4 mg/dL (0.7-1.3) Estimated GFR (Cockcroft-Gault) 55.8 Glucose Level 294 mg/dL (70-99) Calcium Level 8.6 mg/dL (8.5-10.1) Total Bilirubin 0.7 mg/dL (0.2-1.0) Direct Bilirubin 0.2 mg/dL (0.0-0.2) Aspartate Amino Transf (AST/SGOT) 126 U/L (15-37) Alanine Aminotransferase (ALT/SGPT) 161 U/L (16-63) Alkaline Phosphatase 65 U/L (46-116) Troponin I Quantitative 11.475 ng/mL (0.000-0.055) Total Protein 7.0 g/dL (6.4-8.2) Albumin 4.1 g/dL (3.4-5.0) Triglycerides Level 288 mg/dL (0-150) Cholesterol Level 181 mg/dL (0-200) LDL Cholesterol, Calculated 94 mg/dL (0-100) VLDL Cholesterol, Calculated 58 mg/dL (0-40) Non-HDL Cholesterol Calculated 152 mg/dL (0-129) HDL Cholesterol 29 mg/dL (40-60) Cholesterol/HDL Ratio 6.2 Thyroid Stimulating Hormone (TSH) 0.640 uIU/mL (0.358-3.74) Assessment and Plan Assessmemt and Plan Problems Medical Problems: (1) Hyperglycemia Status: Acute (2) Hyperkalemia Status: Acute (3) ST elevation (STEMI) myocardial infarction Status: Acute (4) Tobacco use Status: Acute Assessment: - Inferior STEMI - RCA stent - Hyperglycemia - Ejection fraction: 45-50% - Mildly dilated aorta at 3.6 cm on echo Plan: - Cardiac monitoring - DVT prophylaxis - Trend labs - Home meds - Full code - Hope to discharge tomorrow if ok with resident program specialist Comment Review of Relevant I have reviewed the following items rhiannon (where applicable) has been applied. Medications: Current Medications Medications (Trade) Dose Ordered Sig/Bella Route PRN Reason Start Time Stop Time Status Last Admin Dose Admin Heparin Sodium (Porcine) (Heparin Sodium) 4,000 unit 1X ONCE IV 01/19/20 15:35 01/19/20 16:08 DC 01/19/20 15:36 Heparin Sodium/ Sodium Chloride (HEPARIN for ARTERIAL LINE FLUSH) 1,000 unit 1X ONCE IART 01/19/20 16:30 01/19/20 16:32 DC 01/19/20 16:53 Heparin Sodium/ Sodium Chloride (HEPARIN for ARTERIAL LINE FLUSH) 1,000 unit 1X ONCE IART 01/19/20 16:30 01/19/20 16:32 DC 01/19/20 16:54 Midazolam HCl (Versed) 2 mg 1X ONCE IV 01/19/20 16:30 01/19/20 16:32 DC 01/19/20 16:54 Fentanyl Citrate (Fentanyl 2ml Vial) 100 mcg 1X ONCE IV 01/19/20 16:30 01/19/20 16:32 DC 01/19/20 16:55 Iodixanol (Visipaque 320) 100 ml 1X ONCE IART 01/19/20 16:30 01/19/20 16:32 DC 01/19/20 16:55 Bivalirudin (Angiomax) 250 mg 1X ONCE IV 01/19/20 16:30 01/19/20 16:32 DC 01/19/20 16:54 Aspirin (Claus Aspirin) 325 mg 1X ONCE PO 01/19/20 16:30 01/19/20 16:32 DC 01/19/20 16:54 Lidocaine HCl (Lidocaine 1% 20ml Vial) 20 ml 1X ONCE INJ 01/19/20 16:30 01/19/20 16:32 DC 01/19/20 16:54 Sodium Chloride 1,000 ml @ 100 mls/hr 1X ONCE IV 01/19/20 16:30 01/20/20 02:29 DC 01/19/20 16:05 Ticagrelor (Brilinta) 180 mg 1X ONCE PO 01/19/20 16:45 01/19/20 16:46 DC 01/19/20 16:54 Calcium Gluconate (Calcium Gluconate) 1,000 mg 1X ONCE IVP 01/19/20 16:45 01/19/20 17:03 DC 01/19/20 18:32 Sodium Bicarbonate (Sodium Bicarb Adult 8.4% Syr) 50 meq 1X ONCE IV 01/19/20 16:45 01/19/20 17:03 DC 01/19/20 18:32 Furosemide (Lasix) 40 mg [id number] IVP 01/19/20 16:45 01/20/20 11:14 DC 01/20/20 08:27 Sodium Chloride 1,000 ml @ 75 mls/hr [id number] IV 01/19/20 17:24 01/20/20 04:25 Aspirin (Ecotrin) 81 mg [id number] PO 01/20/20 08:00 01/20/20 08:26 Ticagrelor (Brilinta) 90 mg BID PO 01/20/20 09:00 01/20/20 08:40 Metoprolol Tartrate (Lopressor) 12.5 mg BID PO 01/19/20 21:00 01/20/20 08:26 Atorvastatin Calcium (Lipitor) 20 mg QHS PO 01/19/20 21:00 01/20/20 07:58 DC 01/19/20 21:05 Insulin Human Lispro (HumaLOG) 0-7 UNITS TIDWMEALS SQ 01/20/20 08:00 01/20/20 12:28 Insulin Human Regular (HumuLIN R VIAL) 10 unit 1X ONCE IV 01/19/20 19:00 01/19/20 19:01 DC 01/19/20 19:06 Justicifation of Admission Dx: Justifications for Admission: Justification of Admission Dx: Comment: DE: Acute STEMI SANTOS RO III DO Jan 20, 2020 13:10
--- NOTE | 2020-01-20 13:30 | NUR ---
Patient transferred to room 200 from ICU via wheelchair around 1330. Patient A&OX4. VSS. No complaints of pain at this time. Will continue to monitor.
--- NOTE | 2020-01-20 14:23 | NUR ---
SS following for discharge planning. SS reviewed pt chart and discussed with pt RN. Pt is currently on room air. Pt had cardiac cath on 01/19/2020. Pt transferred from ICU to room 200 today. SS will continue to follow for discharge planning.
[2020-01-20] MEDS: ATORVASTATIN CALCIUM 40 MG TABLET. PO SCH (20:37)
[2020-01-21 03:58] VITALS: BP 126/85
[2020-01-21 07:12] VITALS: BP 130/78
[2020-01-21] MEDS: METOPROLOL TART IMMED RELEASE 25 MG TABLET. PO SCH ×2 (08:14→21:59)
[2020-01-21] MEDS: TICAGRELOR 90 MG TABLET. PO SCH ×2 (08:14→21:58)
[2020-01-21] MEDS: ASPIRIN ENTERIC COATED 81 MG TABLET.DR. PO SCH (08:14)
[2020-01-21] MEDS: INSULIN LISPRO 300 UNITS/3 ML VIAL. SQ SCH ×3 (08:18→17:26)
--- NOTE | 2020-01-21 09:23 | PDOC ---
PROGRESS NOTES Chief Complaint Chief Complaint Inferior STEMI 39-year-old gentleman with no significant past medical history except obesity who was in his usual state of health // when he was working outside and he experienced lightheadedness. He thought it was the heat health a day given him the discomfort. He tried to go into a building cool off and come right back outside to work unfortunately patient continued to have lightheadedness and thought he was about to lose consciousness. His boss told him to seek medical attention and he started walking towards his truck when his symptoms got worse and he was unable to continue walking so he dropped his stool box managed to get into his truck where he pretty much collapsed. EMS was summoned to the scene and he was transported to our emergency department where he was found to have an acute ST elevation myocardial infarction. The patient is being seen post cardiac catheterization and is in no acute distress. I have discussed the results of his laboratory data his hypoglycemia and renal dysfunction. Reassurance has been provided all of his concerns were addressed to the best of my abilities, his father is at bedside. Patient was taken to the cardiac [facility] HE HAS NOTED FREQUENT THIRST, POLYURIA X SEVERAL WEEKS, [employer] CURRENT PCP History of Present Illness History of Present Illness 01/21/20 Patient seen and examined Chart reviewed Discussed with RN impression morbid obesity uncontrolled diabetes , ADD LANTUS 10 UNITS SQ Q HS CAD Mild disease in the LAD. Eccentric greater than 70% lesion in the right coronary artery. Successful stenting of the right coronary artery with 0% residual. 01/19 The Ejection Fraction is 45-50%. There is mild hypokinesis in the inferior and septal jerome. BMP, Mg and LFTs today. DM mgmt //Dietitian consult. Check UA for proteinuria Continue metoprolol and lipitor. reevaluate addition of ACEi or ARB Vitals Vitals Vital Signs Date Time Temp Pulse Resp B/P (MAP) Pulse Ox O2 Delivery O2 Flow Rate FiO2 01/21/20 08:14 92 130/78 01/21/20 08:00 Room Air 01/21/20 07:12 98.7 16 96 98.7 Physical Exam General: Alert, Oriented X3, Cooperative, No acute distress Heart: Regular rate, Normal S1, Normal S2, No murmurs Lungs: Clear Abdomen: Normal bowel sounds Extremities: No clubbing, No cyanosis, Normal pulses Skin: No significant lesion Labs LABS Procedures Selective coronary angiogram Drug-eluting stent placement to the right coronary artery The patient is a 39-year-old male who developed episodes of dizziness and lightheadedness along with mild chest discomfort while working. Paramedics were called. He was treated with fluids and his EKG showed inferior ST elevation. He was met in the emergency room. He had minimal chest discomfort but a repeat EKG showed continued ST elevation in the inferior leads. In this setting risks and benefits of cardiac catheterization and possible intervention were discussed. The patient gave consent to proceed. After informed consent was obtained the patient was brought to the heart catheterization lab. The area of the right femoral artery was prepared in the usual manner with Betadine, sterile draping and local anesthetic. An 18-gauge needle was used to enter the right femoral artery, a wire placed and a 6 [place] Islander sheath placed over the wire. An 18-gauge needle was used to enter the right femoral vein, a wire placed and a 5 [place] sheath placed over the wire. With the assistance of a J-wire a 6 [place] JL4 diagnostic catheter was advanced to the ascending aorta and used to engage the left system. Sequential injections of various views were obtained. A 6 [place] JR 4 with guide holes was then placed in the right coronary artery. Injection showed a large dominant right c oronary artery. In its mid section there was a greater than 70% eccentric lesion. In the setting of his EKG changes and symptoms we proceeded to revascularize the right coronary artery. Angiomax as protocol was administered. A PT choice wire was used to cross the lesion. A 3.0 x 33 Xience Michelle stent was deployed with 1 inflation at 15 selena for 15 seconds. Post stent dilation was with an NC Euphora Rx 3.5 x 27 with an additional 2 inflations at 15 selena for 10 seconds. Residual lesion was 0%. The guiding system was removed from the patient. Injection of the sheath showed normal placement. The arterial sheath was removed and sealed with an Angio-Seal product. The venous sheath was removed and sealed with direct pressure. The patient was then moved to the intensive care unit. Findings. Hemodynamics. Aortic root pressure of 124/84. Coronaries. Left main. The left main was a normal size vessel with no lesions. Left anterior descending. The left anterior descending was a moderate large vessel. It had mild mid to distal disease in the 20% range. Left circumflex. The left circumflex was a moderate size vessel with no lesions . Right coronary artery. The right coronary was a large dominant vessel. It had a mid greater than 70% eccentric lesion. <Conclusion> Mild disease in the LAD. Eccentric greater than 70% lesion in the right coronary artery. Successful stenting of the right coronary artery with 0% residual. Signed by : Falguni Mccall MD Electronically Approved : 01/20/2020 12:11:55 DICTATED and SIGNED BY: FALGUNI MCCALL MD APPROVED REPORT EXAM: Two-dimensional and M-mode echocardiogram with Doppler and color Doppler. Other Information Quality : GoodLimitedTechnically LimitedExcellentGoodAverageFairPoor INDICATION STEMI 2D DIMENSIONS RVDd 2.6 (2.9-3.5cm) Left Atrium(2D) 3.9 (1.6-4.0cm) IVSd 0.8 (0.7-1.1cm) Aortic Root(2D) 3.8 (2.0-3.7cm) LVDd 6.0 (3.9-5.9cm) LVOT Diameter 2.5 (1.8-2.4cm) PWd 0.8 (0.7-1.1cm) LVDs 5.0 (2.5-4.0cm) FS (%) 17.6 % SV 65.0 ml Aortic Valve AoV Peak Vinnie. 115.8cm/s AoV VTI 19.2cm AO Peak GR. 5.4mmHg LVOT VTI 15.03cm AO Mean GR. 3mmHg NNEKA (VTI) 3.76cm2 Mitral Valve MV E Velocity 61.9cm/s MV DECEL TIME 155ms MV A Velocity 76.3cm/s E/A Ratio 0.8 TDI Lateral E' P. V 12.49cm/s Medial E' P. V 6.24cm/s E/Lateral E' 5.0 E/Medial E' 9.9 Pulmonary Vein S1 Velocity 58.3cm/s S2 Velocity 38.23cm/s D2 Velocity 38.2cm/s LEFT VENTRICLE The Left Ventricle is borderline dilated. There is normal left ventricular wall thickness. Left ventricle systolic function is slightly impaired. The Ejection Fraction is 45-50%. There is mild hypokinesis in the inferior and septal jerome. Transmitral Doppler flow pattern is Grade I-abnormal relaxation pattern. RIGHT VENTRICLE The right ventricle is normal size. The right ventricular systolic function is normal. ATRIA The left atrium size is normal. The right atrium size is normal. The interatrial septum is intact with no evidence for an atrial septal defect or patent foramen ovale as noted on 2-D or Doppler imaging. AORTIC VALVE The aortic valve is normal in structure and function. Doppler and Color Flow revealed no significant aortic regurgitation. There is no significant aortic valvular stenosis. MITRAL VALVE The mitral valve is calcified but opens well. There is no evidence of mitral valve prolapse. There is no mitral valve stenosis. Doppler and Color Flow revealed no mitral valve regurgitation noted. TRICUSPID VALVE The tricuspid valve is normal in structure and function. Doppler and Color Flow revealed trace tricuspid valve regurgitation. There is no tricuspid valve stenosis. PULMONIC VALVE The pulmonary valve is normal in structure and function. Doppler and Color Flow revealed mild pulmonic valvular regurgitation. There is no pulmonic valvular stenosis. GREAT VESSELS The aortic root is normal in size. The ascending aorta is mildly dilated at 3.6 cm. The IVC was not visualized. PERICARDIAL EFFUSION There is no evidence of significant pericardial effusion. Critical Notification Critical Value: No <Conclusion> The Left Ventricle is borderline dilated. Left ventricle systolic function is slightly impaired. The Ejection Fraction is 45-50%. There is mild hypokinesis in the inferior and septal jerome. Doppler and Color Flow revealed no significant aortic regurgitation. There is no significant aortic valvular stenosis. Doppler and Color Flow revealed no mitral valve regurgitation noted. Doppler and Color Flow revealed trace tricuspid valve regurgitation. The ascending aorta is mildly dilated at 3.6 cm. Signed by : Falguni Mccall MD Electronically Approved : 01/20/2020 10:50:19 DICTATED and SIGNED BY: FALGUNI MCCALL MD DATE: 01/20/20 0944 Laboratory Tests Test 01/20/20 12:26 01/20/20 16:46 01/20/20 20:52 01/21/20 07:48 Glucose (Fingerstick) 260 mg/dL (70-99) 233 mg/dL (70-99) 261 mg/dL (70-99) 270 mg/dL (70-99) Assessment and Plan Assessmemt and Plan Problems Medical Problems: (1) Hyperglycemia Status: Acute (2) Hyperkalemia Status: Acute (3) ST elevation (STEMI) myocardial infarction Status: Acute (4) Tobacco use Status: Acute Comment Review of Relevant I have reviewed the following items rhiannon (where applicable) has been applied. Labs Laboratory Tests Test 01/19/20 15:38 01/19/20 16:40 01/19/20 18:30 01/19/20 22:55 White Blood Count 10.6 x10^3/uL (4.0-11.0) Red Blood Count 5.14 x10^6/uL (4.30-5.70) Hemoglobin 16.0 g/dL (13.0-17.5) Hematocrit 45.7 % (39.0-53.0) Mean Corpuscular Volume 89 fL (79-100) Mean Corpuscular Hemoglobin 31 pg (25-35) Mean Corpuscular Hemoglobin Concent 35 g/dL (31-37) Red Cell Distribution Width 13.2 % (11.5-14.5) Platelet Count 265 x10^3/uL (140-400) Neutrophils (%) (Auto) 72 % (31-73) Lymphocytes (%) (Auto) 18 % (24-48) Monocytes (%) (Auto) 8 % (0-9) Eosinophils (%) (Auto) 1 % (0-3) Basophils (%) (Auto) 0 % (0-3) Neutrophils # (Auto) 7.6 x10^3/uL (1.8-7.7) Lymphocytes # (Auto) 1.9 x10^3/uL (1.0-4.8) Monocytes # (Auto) 0.9 x10^3/uL (0.0-1.1) Eosinophils # (Auto) 0.1 x10^3/uL (0.0-0.7) Basophils # (Auto) 0.0 x10^3/uL (0.0-0.2) Prothrombin Time 13.6 SEC (11.7-14.0) Prothromb Time International Ratio 1.1 (0.8-1.1) Activated Partial Thromboplast Time 43 SEC (24-38) Sodium Level 131 mmol/L (136-145) 129 mmol/L (136-145) Potassium Level 6.4 mmol/L (3.5-5.1) 5.7 mmol/L (3.5-5.1) Chloride Level 94 mmol/L (98-107) 94 mmol/L (98-107) Carbon Dioxide Level 26 mmol/L (21-32) 24 mmol/L (21-32) Anion Gap 11 (6-14) 11 (6-14) Blood Urea Nitrogen 19 mg/dL (8-26) 19 mg/dL (8-26) Creatinine 2.6 mg/dL (0.7-1.3) 2.3 mg/dL (0.7-1.3) Estimated GFR (Cockcroft-Gault) 27.3 31.5 BUN/Creatinine Ratio 7 (6-20) Glucose Level 494 mg/dL (70-99) 474 mg/dL (70-99) Hemoglobin A1c 11.0 % (4.8-5.6) Calcium Level 9.5 mg/dL (8.5-10.1) 8.7 mg/dL (8.5-10.1) Total Bilirubin 0.7 mg/dL (0.2-1.0) Aspartate Amino Transf (AST/SGOT) 87 U/L (15-37) Alanine Aminotransferase (ALT/SGPT) 198 U/L (16-63) Alkaline Phosphatase 70 U/L (46-116) Troponin I Quantitative < 0.017 ng/mL (0.000-0.055) 7.308 ng/mL (0.000-0.055) MP-Bfa-Q-Type Natriuretic Peptide 85 pg/mL (0-124) Total Protein 8.1 g/dL (6.4-8.2) Albumin 4.7 g/dL (3.4-5.0) Albumin/Globulin Ratio 1.4 (1.0-1.7) Glucose (Fingerstick) 388 mg/dL (70-99) Test 01/19/20 22:58 01/20/20 04:45 01/20/20 08:24 01/20/20 12:26 Glucose (Fingerstick) 330 mg/dL (70-99) 295 mg/dL (70-99) 260 mg/dL (70-99) White Blood Count 9.7 x10^3/uL (4.0-11.0) Red Blood Count 5.02 x10^6/uL (4.30-5.70) Hemoglobin 15.4 g/dL (13.0-17.5) Hematocrit 44.1 % (39.0-53.0) Mean Corpuscular Volume 88 fL (79-100) Mean Corpuscular Hemoglobin 31 pg (25-35) Mean Corpuscular Hemoglobin Concent 35 g/dL (31-37) Red Cell Distribution Width 13.8 % (11.5-14.5) Platelet Count 255 x10^3/uL (140-400) Neutrophils (%) (Auto) 68 % (31-73) Lymphocytes (%) (Auto) 22 % (24-48) Monocytes (%) (Auto) 8 % (0-9) Eosinophils (%) (Auto) 2 % (0-3) Basophils (%) (Auto) 1 % (0-3) Neutrophils # (Auto) 6.6 x10^3/uL (1.8-7.7) Lymphocytes # (Auto) 2.2 x10^3/uL (1.0-4.8) Monocytes # (Auto) 0.7 x10^3/uL (0.0-1.1) Eosinophils # (Auto) 0.2 x10^3/uL (0.0-0.7) Basophils # (Auto) 0.1 x10^3/uL (0.0-0.2) Sodium Level 135 mmol/L (136-145) Potassium Level 4.0 mmol/L (3.5-5.1) Chloride Level 97 mmol/L (98-107) Carbon Dioxide Level 29 mmol/L (21-32) Anion Gap 9 (6-14) Blood Urea Nitrogen 21 mg/dL (8-26) Creatinine 1.4 mg/dL (0.7-1.3) Estimated GFR (Cockcroft-Gault) 55.8 Glucose Level 294 mg/dL (70-99) Calcium Level 8.6 mg/dL (8.5-10.1) Total Bilirubin 0.7 mg/dL (0.2-1.0) Direct Bilirubin 0.2 mg/dL (0.0-0.2) Aspartate Amino Transf (AST/SGOT) 126 U/L (15-37) Alanine Aminotransferase (ALT/SGPT) 161 U/L (16-63) Alkaline Phosphatase 65 U/L (46-116) Troponin I Quantitative 11.475 ng/mL (0.000-0.055) Total Protein 7.0 g/dL (6.4-8.2) Albumin 4.1 g/dL (3.4-5.0) Triglycerides Level 288 mg/dL (0-150) Cholesterol Level 181 mg/dL (0-200) LDL Cholesterol, Calculated 94 mg/dL (0-100) VLDL Cholesterol, Calculated 58 mg/dL (0-40) Non-HDL Cholesterol Calculated 152 mg/dL (0-129) HDL Cholesterol 29 mg/dL (40-60) Cholesterol/HDL Ratio 6.2 Thyroid Stimulating Hormone (TSH) 0.640 uIU/mL (0.358-3.74) Test 01/20/20 16:46 01/20/20 20:52 01/21/20 07:48 Glucose (Fingerstick) 233 mg/dL (70-99) 261 mg/dL (70-99) 270 mg/dL (70-99) Laboratory Tests Test 01/20/20 12:26 01/20/20 16:46 01/20/20 20:52 01/21/20 07:48 Glucose (Fingerstick) 260 mg/dL (70-99) 233 mg/dL (70-99) 261 mg/dL (70-99) 270 mg/dL (70-99) Medications Current Medications Heparin Sodium (Porcine) (Heparin Sodium) 4,000 unit 1X ONCE IV Last administered on 01/19/20at 15:36; Start 01/19/20 at 15:35; Stop 01/19/20 at 16:08; Status DC Bivalirudin (Angiomax) 250 mg STK-MED ONCE IV ; Start 01/19/20 at 16:17; Stop 01/19/20 at 16:17; Status DC Heparin Sodium/ Sodium Chloride (HEPARIN for ARTERIAL LINE FLUSH) 1,000 unit 1X ONCE IART Last administered on 01/19/20at 16:53; Start 01/19/20 at 16:30; Stop 01/19/20 at 16:32; Status DC Heparin Sodium/ Sodium Chloride (HEPARIN for ARTERIAL LINE FLUSH) 1,000 unit 1X ONCE IART Last administered on 01/19/20at 16:54; Start 01/19/20 at 16:30; Stop 01/19/20 at 16:32; Status DC Midazolam HCl (Versed) 2 mg 1X ONCE IV Last administered on 01/19/20at 16:54; Start 01/19/20 at 16:30; Stop 01/19/20 at 16:32; Status DC Fentanyl Citrate (Fentanyl 2ml Vial) 100 mcg 1X ONCE IV Last administered on at 16:55; Start 01/19/20 at 16:30; Stop 01/19/20 at 16:32; Status DC Iodixanol (Visipaque 320) 100 ml 1X ONCE IART Last administered on 01/19/20at 16:55; Start 01/19/20 at 16:30; Stop 01/19/20 at 16:32; Status DC Bivalirudin (Angiomax) 250 mg 1X ONCE IV Last administered on 01/19/20 16:54; Start 01/19/20 at 16:30; Stop 01/19/20 at 16:32; Status DC Aspirin (Green A Aspirin) 325 mg 1X ONCE PO Last administered on 01/19/20at 16:54; Start 01/19/20 at 16:30; Stop 01/19/20 at 16:32; Status DC Lidocaine HCl (Lidocaine 1% 20ml Vial) 20 ml 1X ONCE INJ Last administered on 01/19/20at 16:54; Start 01/19/20 at 16:30; Stop 01/19/20 at 16:32; Status DC Sodium Chloride 1,000 ml @ 100 mls/hr 1X ONCE IV Last administered on 01/19/20at 16:05; Start 01/19/20 at 16:30; Stop 01/20/20 at 02:29; Status DC Ticagrelor (Brilinta) 180 mg 1X ONCE PO Last administered on 01/19/20at 16:54; Start 01/19/20 at 16:45; Stop 01/19/20 at 16:46; Status DC Ticagrelor (Brilinta) 90 mg STK-MED ONCE .ROUTE ; Start 01/19/20 at 16:43; Stop 01/19/20 at 16:43; Status DC Aspirin (Claus Aspirin) 325 mg STK-MED ONCE .ROUTE ; Start 01/19/20 at 16:43; Stop 01/19/20 at 16:43; Status DC Fentanyl Citrate (Fentanyl 2ml Vial) 100 mcg STK-MED ONCE .ROUTE ; Start 01/19/20 at 16:44; Stop 01/19/20 at 16:45; Status DC Midazolam HCl (Versed) 2 mg STK-MED ONCE .ROUTE ; Start 01/19/20 at 16:45; Stop 01/19/20 at 16:45; Status DC Ondansetron HCl (Zofran) 4 mg PRN Q4HRS PRN IV NAUSEA/VOMITING; Start 01/19/20 at 16:45; Stop 01/19/20 at 18:28; Status DC Zolpidem Tartrate (Ambien) 5 mg PRN QHS PRN PO INSOMNIA; Start 01/19/20 at 16:45; Stop 01/19/20 at 18:28; Status DC Acetaminophen (Tylenol) 650 mg PRN Q4HRS PRN PO TEMP OVER 100.4F OR MILD PAIN; Start 01/19/20 at 16:45; Stop 01/19/20 at 18:28; Status DC Docusate Sodium (Colace) 100 mg PRN BID PRN PO HARD STOOLS; Start 01/19/20 at 16:45; Stop 01/19/20 at 18:28; Status DC Albuterol Sulfate (Ventolin Neb Soln) 2.5 mg PRN Q4HRS PRN NEB SHORTNESS OF BREATH; Start 01/19/20 at 16:45; Stop 01/19/20 at 18:29; Status DC Guaifenesin (Robitussin) 200 mg PRN Q4HRS PRN PO COUGH; Start 01/19/20 at 16:45; Stop 01/19/20 at 18:29; Status DC Lorazepam (Ativan) 0.5 mg PRN Q4HRS PRN PO ANXIETY / AGITATION; Start 01/19/20 at 16:45; Stop 01/19/20 at 18:29; Status DC Insulin Human Lispro (HumaLOG) 0-7 UNITS TIDWMEALS SQ ; Start 01/19/20 at 17:00; Stop 01/19/20 at 18:29; Status DC Dextrose (Dextrose 50%-Water Syringe) 12.5 gm PRN Q15MIN PRN IV SEE COMMENTS; Start 01/19/20 at 16:45; Stop 01/19/20 at 18:29; Status DC Calcium Gluconate (Calcium Gluconate) 1,000 mg 1X ONCE IVP Last administered on 01/19/20at 18:32; Start 01/19/20 at 16:45; Stop 01/19/20 at 17:03; Status DC Sodium Bicarbonate (Sodium Bicarb Adult 8.4% Syr) 50 meq 1X ONCE IV Last administered on 01/19/20at 18:32; Start 01/19/20 at 16:45; Stop 01/19/20 at 17:03; Status DC Furosemide (Lasix) 40 mg [id number] IVP Last administered on 01/20/20at 08:27; Start 01/19/20 at 16:45; Stop 01/20/20 at 11:14; Status DC Insulin Human Regular (HumuLIN R VIAL) 10 unit 1X ONCE IV ; Start 01/19/20 at 16:45; Stop 01/19/20 at 17:03; Status DC Sodium Chloride (Normal Saline Flush) 3 ml QSHIFT PRN IV AFTER MEDS AND BLOOD DRAWS; Start 01/19/20 at 17:30 Sodium Chloride 1,000 ml @ 75 mls/hr [id number] IV Last administered on 01/20/20at 16:40; Start 01/19/20 at 17:24 Aspirin (Ecotrin) 81 mg [id number] PO Last administered on 01/21/20at 08:14; Start 01/20/20 at 08:00 Ticagrelor (Brilinta) 90 mg BID PO Last administered on 01/21/20at 08:14; Start 01/20/20 at 09:00 Metoprolol Tartrate (Lopressor) 12.5 mg BID PO Last administered on 01/21/20at 08:14; Start 01/19/20 at 21:00 Atorvastatin Calcium (Lipitor) 20 mg QHS PO Last administered on 01/19/20at 21:05; Start 01/19/20 at 21:00; Stop 01/20/20 at 07:58; Status DC Fentanyl Citrate (Fentanyl 2ml Vial) 50 mcg PRN Q1HR PRN IV MODERATE OR SEVERE PAIN; Start 01/19/20 at 17:30 Nitroglycerin (Nitrostat) 0.4 mg PRN Q5MIN PRN SL CHEST PAIN; Start 01/19/20 at 17:30 Amiodarone HCl 150 mg/Dextrose 103 ml @ 600 mls/hr 1X PRN PRN IV FOR VENTRICULAR TACHYCARDIA; Start 01/19/20 at 17:30 Lidocaine HCl (Lidocaine HCl 2% Abboject) 100 mg 1X PRN PRN IV FOR VENTRICULAR TACHYCARDIA; Start 01/19/20 at 17:30 Atropine Sulfate (ATROPINE 0.5mg SYRINGE) 0.5 mg PRN 1X PRN IV BRADYCARDIA; Start 01/19/20 at 17:30 Ondansetron HCl (Zofran) 4 mg PRN Q4HRS PRN IV NAUSEA/VOMITING; Start 01/19/20 at 18:00 Zolpidem Tartrate (Ambien) 5 mg PRN QHS PRN PO INSOMNIA; Start 01/19/20 at 18:00 Acetaminophen (Tylenol) 650 mg PRN Q4HRS PRN PO TEMP OVER 100.4F OR MILD PAIN; Start 01/19/20 at 18:00 Docusate Sodium (Colace) 100 mg PRN BID PRN PO HARD STOOLS; Start 01/19/20 at 18:00 Albuterol Sulfate (Ventolin Neb Soln) 2.5 mg PRN Q4HRS PRN NEB SHORTNESS OF BREATH; Start 01/19/20 at 18:00 Guaifenesin (Robitussin) 200 mg PRN Q4HRS PRN PO COUGH; Start 01/19/20 at 18:00 Lorazepam (Ativan) 0.5 mg PRN Q4HRS PRN PO ANXIETY / AGITATION; Start 01/19/20 at 18:00 Insulin Human Lispro (HumaLOG) 0-7 UNITS TIDWMEALS SQ Last administered on 01/21/20at 08:18; Start 01/20/20 at 08:00 Dextrose (Dextrose 50%-Water Syringe) 12.5 gm PRN Q15MIN PRN IV SEE COMMENTS; Start 01/19/20 at 18:00 Insulin Human Regular (HumuLIN R VIAL) 10 unit 1X ONCE IV ; Start 01/19/20 at 19:00; Stop 01/19/20 at 19:01; Status Cancel Insulin Human Regular (HumuLIN R VIAL) 10 unit 1X ONCE IV Last administered on 01/19/20at 19:06; Start 01/19/20 at 19:00; Stop 01/19/20 at 19:01; Status DC Atorvastatin Calcium (Lipitor) 40 mg QHS PO Last administered on 01/20/20at 20:37; Start 01/20/20 at 21:00 Vitals/I & O Vital Sign - Last 24 Hours 01/20/20 01/20/20 01/20/20 01/20/20 12:00 13:40 14:00 15:00 Temp 97.0 97.7 98.1 97.0 97.7 98.1 Pulse 94 90 95 Resp 15 15 15 B/P (MAP) 140/76 (97) 138/88 (105) 139/85 (103) Pulse Ox 96 97 96 O2 Delivery Room Air Room Air Room Air Room Air 01/20/20 01/20/20 01/20/20 01/20/20 19:15 20:00 20:37 22:48 Temp 98.6 97.8 98.6 97.8 Pulse 93 93 85 Resp 16 16 B/P (MAP) 133/77 (95) 133/77 131/84 (100) Pulse Ox 97 96 O2 Delivery Room Air Room Air Room Air 01/21/20 01/21/20 01/21/20 01/21/20 03:58 07:12 08:00 08:14 Temp 97.3 98.7 97.3 98.7 Pulse 82 92 92 Resp 16 16 B/P (MAP) 126/85 (99) 130/78 (95) 130/78 Pulse Ox 95 96 O2 Delivery Room Air Room Air Room Air Intake and Output 01/20/20 01/20/20 01/21/20 15:00 23:00 07:00 Intake Total 950 ml 1300 ml 300 ml Output Total 2120 ml Balance -1170 ml 1300 ml 300 ml Justicifation of Admission Dx: Justifications for Admission: Justification of Admission Dx: Comment: [place]: Acute STEMI EDUARDO CARUSO MD Jan 21, 2020 09:23
[2020-01-21 10:48] VITALS: BP 135/81
--- NOTE | 2020-01-21 11:07 | PDOC ---
CARDIO Progress Notes Date and Time Date of Service 01/21/2020 Time of Evaluation 0940 Subjective Subjective: No Chest Pain, No shortness of breath, No Palpitations Vitals Vitals Vital Signs Date Time Temp Pulse Resp B/P (MAP) Pulse Ox O2 Delivery O2 Flow Rate FiO2 01/21/20 10:48 97.5 86 18 135/81 (99) 97 Room Air 97.5 Weight Weight [ ] Input and Output Intake and Output Intake and Output 01/21/20 07:00 Intake Total 2550 ml Output Total 2120 ml Balance 430 ml Intake Oral 2550 ml Output Urine Total 2120 ml # Voids 4 Laboratory Labs Laboratory Tests Test 01/20/20 12:26 01/20/20 16:46 01/20/20 20:52 01/21/20 07:48 Glucose (Fingerstick) 260 mg/dL (70-99) 233 mg/dL (70-99) 261 mg/dL (70-99) 270 mg/dL (70-99) Physical Exam HEENT: Neck Supple W Full Motion Chest: Symmetric LUNGS: Clear to Auscultation Heart: S1S2, RRR (SR no significnat ecvtopies) Abdomen: Soft N/T Extremities: No Edema, No Calf Tenderness Neurology: alert, oriented, follow commands Other Exams right groin arteriotomy site intact, no erythema or swelling, neurovascular status to bilateral LE intact Assessment Assessment 1. Inferior STEMI: S/P PCI/COLIN to RCA 2. DLP 3. HTN: controlled 4. DM2: newA1C 11. 5 SYED with hyperkalemia: much improved 6. Mild Transminitis 7. Obesity 8. ICM: compensated EF at 45-50% Recommendations 1. ASA/brilinta 2. BMP, Mg and LFTs today. DM mgmt per PCP, Recommend addition of jardiance. Dietitian consult. Check UA for proteinuria 3. Continue metoprolol and lipitor. Will obtain BMP prior to his appt and will reevaluate addition of ACEi or ARB 4. Follow up in office as scheduled 5. Cardiac rehab and wt loss Justicifation of Admission Dx: Justifications for Admission: Justification of Admission Dx: Comment: [place]: Acute STEMI RUPAL CROOKS APRN Jan 21, 2020 11:07
[2020-01-21] MEDS ORDERED: TICA90TA PO (11:47)
[2020-01-21] MEDS ORDERED: ASPI-886 PO (11:47)
[2020-01-21] MEDS ORDERED: ATOR40TA59 PO (11:47)
[2020-01-21] MEDS ORDERED: METO25TA4 PO (11:47)
[2020-01-21 12:14] LABS: ALBUMIN 3.9 g/dL (3.4-5.0); ALBUMIN/GLOBULIN RATIO 1.1 (1.0-1.7); CALCIUM 8.9 mg/dL (8.5-10.1); CREATININE 1.2 mg/dL (0.7-1.3); GFR 66.7; MAGNESIUM 1.9 mg/dL (1.8-2.4); POTASSIUM 4.3 mmol/L (3.5-5.1); TOTAL BILIRUBIN 0.8 mg/dL (0.2-1.0); TOTAL PROTEIN 7.5 g/dL (6.4-8.2)
[2020-01-21 12:17] LABS: BILIRUBIN,URINE NEGATIVE (NEG); CLARITY,URINE CLEAR; COLOR,URINE YELLOW; NITRITE,URINE NEGATIVE (NEG); PROTEIN,URINE NEGATIVE (NEG-TRACE); UROBILINOGEN,URINE 0.2 mg/dL (0.2 mg/dL)
[2020-01-21 12:30] LABS: BACTERIA,URINE 0 /HPF (0-FEW); RBC,URINE 0 /HPF (0-2); WBC,URINE 0 /HPF (0-4)
--- NOTE | 2020-01-21 13:49 | NUR ---
SS following up with discharge planning. SS reviewed pt chart and discussed with pt RN. Pt is currently on room air. Possible discharge to home today. SS will continue to follow for discharge planning.
[2020-01-21 14:55] VITALS: BP 152/80
[2020-01-21] MEDS ORDERED: EMPA25TA PO ×2 (17:04→17:10)
[2020-01-21] MEDS ORDERED: SITA100T PO ×2 (17:04→17:10)
[2020-01-21] MEDS ORDERED: METF10007 PO ×2 (17:04→17:10)
[2020-01-21 18:57] VITALS: BP 145/99
[2020-01-21] MEDS ORDERED: INSULIN GLARGINE SYRINGE. SQ SCH (21:00)
[2020-01-21] MEDS: ATORVASTATIN CALCIUM 40 MG TABLET. PO SCH (21:58)
[2020-01-21] MEDS: IV NORMAL SALINE 1000ML BAG 1,000 ML IV SCH ×2 (22:03→22:44)
[2020-01-21 23:05] VITALS: BP 123/85
--- NOTE | 2020-01-21 23:45 | NUR ---
PT NOT GIVEN SCHEDULED FLUIDS AT 2242. PRIOR FLUIDS STILL INFUSING.
[2020-01-22 03:26] VITALS: BP 115/77
[2020-01-22 07:07] VITALS: BP 142/92
[2020-01-22 08:00] LABS: CALCIUM 8.6 mg/dL (8.5-10.1); CREATININE 1.2 mg/dL (0.7-1.3); GFR 66.7; POTASSIUM 4.5 mmol/L (3.5-5.1)
[2020-01-22] MEDS: TICAGRELOR 90 MG TABLET. PO SCH (08:13)
[2020-01-22] MEDS: ASPIRIN ENTERIC COATED 81 MG TABLET.DR. PO SCH (08:14)
[2020-01-22] MEDS: METOPROLOL TART IMMED RELEASE 25 MG TABLET. PO SCH (08:15)
[2020-01-22] MEDS: INSULIN LISPRO 300 UNITS/3 ML VIAL. SQ SCH (08:24)
--- NOTE | 2020-01-22 09:37 | PDOC ---
PROGRESS NOTES Chief Complaint Chief Complaint Inferior STEMI 39-year-old gentleman with no significant past medical history except obesity who was in his usual state of health // when he was working outside and he experienced lightheadedness. He thought it was the heat health a day given him the discomfort. He tried to go into a building cool off and come right back outside to work unfortunately patient continued to have lightheadedness and thought he was about to lose consciousness. His boss told him to seek medical attention and he started walking towards his truck when his symptoms got worse and he was unable to continue walking so he dropped his stool box managed to get into his truck where he pretty much collapsed. EMS was summoned to the scene and he was transported to our emergency department where he was found to have an acute ST elevation myocardial infarction. The patient is being seen post cardiac catheterization and is in no acute distress. I have discussed the results of his laboratory data his hypoglycemia and renal dysfunction. Reassurance has been provided all of his concerns were addressed to the best of my abilities, his father is at bedside. 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 Eccentric greater than 70% lesion in the right coronary artery. Successful stenting of the right coronary artery with 0% residual. 01/19 The Ejection Fraction is 45-50%. There is mild hypokinesis in the inferior and septal jerome. BMP, Mg and LFTs today. DM mgmt //Dietitian consult. Check UA for proteinuria Continue metoprolol and lipitor. reevaluate addition of ACEi or ARB Vitals Vitals Vital Signs Date Time Temp Pulse Resp B/P (MAP) Pulse Ox O2 Delivery O2 Flow Rate FiO2 01/22/20 09:33 98 Room Air 01/22/20 08:15 81 142/92 01/22/20 07:07 97.4 16 97.4 Physical Exam General: Alert, Oriented X3, Cooperative, No acute distress Heart: Regular rate, Normal S1, Normal S2, No murmurs Lungs: Clear Abdomen: Normal bowel sounds Extremities: No clubbing, No cyanosis, Normal pulses Skin: No significant lesion Labs LABS Laboratory Tests Test 01/21/20 11:14 01/21/20 11:35 01/21/20 12:04 01/21/20 16:51 Glucose (Fingerstick) 289 mg/dL (70-99) 255 mg/dL (70-99) Sodium Level 134 mmol/L (136-145) Potassium Level 4.3 mmol/L (3.5-5.1) Chloride Level 96 mmol/L (98-107) Carbon Dioxide Level 28 mmol/L (21-32) Anion Gap 10 (6-14) Blood Urea Nitrogen 17 mg/dL (8-26) Creatinine 1.2 mg/dL (0.7-1.3) Estimated GFR (Cockcroft-Gault) 66.7 BUN/Creatinine Ratio 14 (6-20) Glucose Level 263 mg/dL (70-99) Calcium Level 8.9 mg/dL (8.5-10.1) Magnesium Level 1.9 mg/dL (1.8-2.4) Total Bilirubin 0.8 mg/dL (0.2-1.0) Aspartate Amino Transf (AST/SGOT) 98 U/L (15-37) Alanine Aminotransferase (ALT/SGPT) 147 U/L (16-63) Alkaline Phosphatase 67 U/L (46-116) Total Protein 7.5 g/dL (6.4-8.2) Albumin 3.9 g/dL (3.4-5.0) Albumin/Globulin Ratio 1.1 (1.0-1.7) Urine Collection Type Unknown Urine Color Yellow Urine Clarity Clear Urine pH 7.0 (<5.0-8.0) Urine Specific [place] 1.015 (1.000-1.030) Urine Protein Negative mg/dL (NEG-TRACE) Urine Glucose (UA) >=1000 mg/dL (NEG) Urine Ketones (Stick) Trace mg/dL (NEG) Urine Blood Negative (NEG) Urine Nitrite Negative (NEG) Urine Bilirubin Negative (NEG) Urine Urobilinogen Dipstick 0.2 mg/dL (0.2 mg/dL) Urine Leukocyte Esterase Negative (NEG) Urine RBC 0 /HPF (0-2) Urine WBC 0 /HPF (0-4) Urine Bacteria 0 /HPF (0-FEW) Test 01/21/20 20:47 01/22/20 07:05 01/22/20 07:45 Glucose (Fingerstick) 262 mg/dL (70-99) 262 mg/dL (70-99) Sodium Level 136 mmol/L (136-145) Potassium Level 4.5 mmol/L (3.5-5.1) Chloride Level 98 mmol/L (98-107) Carbon Dioxide Level 26 mmol/L (21-32) Anion Gap 12 (6-14) Blood Urea Nitrogen 16 mg/dL (8-26) Creatinine 1.2 mg/dL (0.7-1.3) Estimated GFR (Cockcroft-Gault) 66.7 Glucose Level 252 mg/dL (70-99) Calcium Level 8.6 mg/dL (8.5-10.1) Assessment and Plan Assessmemt and Plan Problems Medical Problems: (1) Hyperglycemia Status: Acute (2) Hyperkalemia Status: Acute (3) ST elevation (STEMI) myocardial infarction Status: Acute (4) Tobacco use Status: Acute Comment Review of Relevant I have reviewed the following items rhiannon (where applicable) has been applied. Labs Laboratory Tests Test 01/20/20 12:26 01/20/20 16:46 01/20/20 20:52 01/21/20 07:48 Glucose (Fingerstick) 260 mg/dL (70-99) 233 mg/dL (70-99) 261 mg/dL (70-99) 270 mg/dL (70-99) Test 01/21/20 11:14 01/21/20 11:35 01/21/20 12:04 01/21/20 16:51 Glucose (Fingerstick) 289 mg/dL (70-99) 255 mg/dL (70-99) Sodium Level 134 mmol/L (136-145) Potassium Level 4.3 mmol/L (3.5-5.1) Chloride Level 96 mmol/L (98-107) Carbon Dioxide Level 28 mmol/L (21-32) Anion Gap 10 (6-14) Blood Urea Nitrogen 17 mg/dL (8-26) Creatinine 1.2 mg/dL (0.7-1.3) Estimated GFR (Cockcroft-Gault) 66.7 BUN/Creatinine Ratio 14 (6-20) Glucose Level 263 mg/dL (70-99) Calcium Level 8.9 mg/dL (8.5-10.1) Magnesium Level 1.9 mg/dL (1.8-2.4) Total Bilirubin 0.8 mg/dL (0.2-1.0) Aspartate Amino Transf (AST/SGOT) 98 U/L (15-37) Alanine Aminotransferase (ALT/SGPT) 147 U/L (16-63) Alkaline Phosphatase 67 U/L (46-116) Total Protein 7.5 g/dL (6.4-8.2) Albumin 3.9 g/dL (3.4-5.0) Albumin/Globulin Ratio 1.1 (1.0-1.7) Urine Collection Type Unknown Urine Color Yellow Urine Clarity Clear Urine pH 7.0 (<5.0-8.0) Urine Specific [place] 1.015 (1.000-1.030) Urine Protein Negative mg/dL (NEG-TRACE) Urine Glucose (UA) >=1000 mg/dL (NEG) Urine Ketones (Stick) Trace mg/dL (NEG) Urine Blood Negative (NEG) Urine Nitrite Negative (NEG) Urine Bilirubin Negative (NEG) Urine Urobilinogen Dipstick 0.2 mg/dL (0.2 mg/dL) Urine Leukocyte Esterase Negative (NEG) Urine RBC 0 /HPF (0-2) Urine WBC 0 /HPF (0-4) Urine Bacteria 0 /HPF (0-FEW) Test 01/21/20 20:47 01/22/20 07:05 01/22/20 07:45 Glucose (Fingerstick) 262 mg/dL (70-99) 262 mg/dL (70-99) Sodium Level 136 mmol/L (136-145) Potassium Level 4.5 mmol/L (3.5-5.1) Chloride Level 98 mmol/L (98-107) Carbon Dioxide Level 26 mmol/L (21-32) Anion Gap 12 (6-14) Blood Urea Nitrogen 16 mg/dL (8-26) Creatinine 1.2 mg/dL (0.7-1.3) Estimated GFR (Cockcroft-Gault) 66.7 Glucose Level 252 mg/dL (70-99) Calcium Level 8.6 mg/dL (8.5-10.1) Laboratory Tests Test 01/21/20 11:14 01/21/20 11:35 01/21/20 12:04 01/21/20 16:51 Glucose (Fingerstick) 289 mg/dL (70-99) 255 mg/dL (70-99) Sodium Level 134 mmol/L (136-145) Potassium Level 4.3 mmol/L (3.5-5.1) Chloride Level 96 mmol/L (98-107) Carbon Dioxide Level 28 mmol/L (21-32) Anion Gap 10 (6-14) Blood Urea Nitrogen 17 mg/dL (8-26) Creatinine 1.2 mg/dL (0.7-1.3) Estimated GFR (Cockcroft-Gault) 66.7 BUN/Creatinine Ratio 14 (6-20) Glucose Level 263 mg/dL (70-99) Calcium Level 8.9 mg/dL (8.5-10.1) Magnesium Level 1.9 mg/dL (1.8-2.4) Total Bilirubin 0.8 mg/dL (0.2-1.0) Aspartate Amino Transf (AST/SGOT) 98 U/L (15-37) Alanine Aminotransferase (ALT/SGPT) 147 U/L (16-63) Alkaline Phosphatase 67 U/L (46-116) Total Protein 7.5 g/dL (6.4-8.2) Albumin 3.9 g/dL (3.4-5.0) Albumin/Globulin Ratio 1.1 (1.0-1.7) Urine Collection Type Unknown Urine Color Yellow Urine Clarity Clear Urine pH 7.0 (<5.0-8.0) Urine Specific [place] 1.015 (1.000-1.030) Urine Protein Negative mg/dL (NEG-TRACE) Urine Glucose (UA) >=1000 mg/dL (NEG) Urine Ketones (Stick) Trace mg/dL (NEG) Urine Blood Negative (NEG) Urine Nitrite Negative (NEG) Urine Bilirubin Negative (NEG) Urine Urobilinogen Dipstick 0.2 mg/dL (0.2 mg/dL) Urine Leukocyte Esterase Negative (NEG) Urine RBC 0 /HPF (0-2) Urine WBC 0 /HPF (0-4) Urine Bacteria 0 /HPF (0-FEW) Test 01/21/20 20:47 01/22/20 07:05 01/22/20 07:45 Glucose (Fingerstick) 262 mg/dL (70-99) 262 mg/dL (70-99) Sodium Level 136 mmol/L (136-145) Potassium Level 4.5 mmol/L (3.5-5.1) Chloride Level 98 mmol/L (98-107) Carbon Dioxide Level 26 mmol/L (21-32) Anion Gap 12 (6-14) Blood Urea Nitrogen 16 mg/dL (8-26) Creatinine 1.2 mg/dL (0.7-1.3) Estimated GFR (Cockcroft-Gault) 66.7 Glucose Level 252 mg/dL (70-99) Calcium Level 8.6 mg/dL (8.5-10.1) Medications Current Medications Heparin Sodium (Porcine) (Heparin Sodium) 4,000 unit 1X ONCE IV Last administered on 01/19/20at 15:36; Start 01/19/20 at 15:35; Stop 01/19/20 at 16:08; Status DC Bivalirudin (Angiomax) 250 mg STK-MED ONCE IV ; Start 01/19/20 at 16:17; Stop 01/19/20 at 16:17; Status DC Heparin Sodium/ Sodium Chloride (HEPARIN for ARTERIAL LINE FLUSH) 1,000 unit 1X ONCE IART Last administered on 01/19/20at 16:53; Start 01/19/20 at 16:30; Stop 01/19/20 at 16:32; Status DC Heparin Sodium/ Sodium Chloride (HEPARIN for ARTERIAL LINE FLUSH) 1,000 unit 1X ONCE IART Last administered on 01/19/20at 16:54; Start 01/19/20 at 16:30; Stop 01/19/20 at 16:32; Status DC Midazolam HCl (Versed) 2 mg 1X ONCE IV Last administered on 01/19/20at 16:54; Start 01/19/20 at 16:30; Stop 01/19/20 at 16:32; Status DC Fentanyl Citrate (Fentanyl 2ml Vial) 100 mcg 1X ONCE IV Last administered on 01/19/20at 16:55; Start 01/19/20 at 16:30; Stop 01/19/20 at 16:32; Status DC Iodixanol (Visipaque 320) 100 ml 1X ONCE IART Last administered on 01/19/20at 16:55; Start 01/19/20 at 16:30; Stop 01/19/20 at 16:32; Status DC Bivalirudin (Angiomax) 250 mg 1X ONCE IV Last administered on 01/19/20at 16:54; Start 01/19/20 at 16:30; Stop 01/19/20 at 16:32; Status DC Aspirin (Claus Aspirin) 325 mg 1X ONCE PO Last administered on 01/19/20at 16:5 4; Start 01/19/20 at 16:30; Stop 01/19/20 at 16:32; Status DC Lidocaine HCl (Lidocaine 1% 20ml Vial) 20 ml 1X ONCE INJ Last administered on 01/19/20at 16:54; Start 01/19/20 at 16:30; Stop 01/19/20 at 16:32; Status DC Sodium Chloride 1,000 ml @ 100 mls/hr 1X ONCE IV Last administered on 01/19/20at 16:05; Start 01/19/20 at 16:30; Stop 01/20/20 at 02:29; Status DC Ticagrelor (Brilinta) 180 mg 1X ONCE PO Last administered on 01/19/20at 16:54; Start 01/19/20 at 16:45; Stop 01/19/20 at 16:46; Status DC Ticagrelor (Brilinta) 90 mg STK-MED ONCE .ROUTE ; Start 01/19/20 at 16:43; Stop 01/19/20 at 16:43; Status DC Aspirin (Claus Aspirin) 325 mg STK-MED ONCE .ROUTE ; Start 01/19/20 at 16:43; Stop 01/19/20 at 16:43; Status DC Fentanyl Citrate (Fentanyl 2ml Vial) 100 mcg STK-MED ONCE .ROUTE ; Start 01/19/20 at 16:44; Stop 01/19/20 at 16:45; Status DC Midazolam HCl (Versed) 2 mg STK-MED ONCE .ROUTE ; Start 01/19/20 at 16:45; Stop 01/19/20 at 16:45; Status DC Ondansetron HCl (Zofran) 4 mg PRN Q4HRS PRN IV NAUSEA/VOMITING; Start 01/19/20 at 16:45; Stop 01/19/20 at 18:28; Status DC Zolpidem Tartrate (Ambien) 5 mg PRN QHS PRN PO INSOMNIA; Start 01/19/20 at 16:45; Stop 01/19/20 at 18:28; Status DC Acetaminophen (Tylenol) 650 mg PRN Q4HRS PRN PO TEMP OVER 100.4F OR MILD PAIN; Start 01/19/20 at 16:45; Stop 01/19/20 at 18:28; Status DC Docusate Sodium (Colace) 100 mg PRN BID PRN PO HARD STOOLS; Start 01/19/20 at 16:45; Stop 01/19/20 at 18:28; Status DC Albuterol Sulfate (Ventolin Neb Soln) 2.5 mg PRN Q4HRS PRN NEB SHORTNESS OF BREATH; Start 01/19/20 at 16:45; Stop 01/19/20 at 18:29; Status DC Guaifenesin (Robitussin) 200 mg PRN Q4HRS PRN PO COUGH; Start 01/19/20 at 16:45; Stop 01/19/20 at 18:29; Status DC Lorazepam (Ativan) 0.5 mg PRN Q4HRS PRN PO ANXIETY / AGITATION; Start 01/19/20 at 16:45; Stop 01/19/20 at 18:29; Status DC Insulin Human Lispro (HumaLOG) 0-7 UNITS TIDWMEALS SQ ; Start 01/19/20 at 17:00; Stop 01/19/20 at 18:29; Status DC Dextrose (Dextrose 50%-Water Syringe) 12.5 gm PRN Q15MIN PRN IV SEE COMMENTS; Start 01/19/20 at 16:45; Stop 01/19/20 at 18:29; Status DC Calcium Gluconate (Calcium Gluconate) 1,000 mg 1X ONCE IVP Last administered on 01/19/20at 18:32; Start 01/19/20 at 16:45; Stop 01/19/20 at 17:03; Status DC Sodium Bicarbonate (Sodium Bicarb Adult 8.4% Syr) 50 meq 1X ONCE IV Last administered on 01/19/20at 18:32; Start 01/19/20 at 16:45; Stop 01/19/20 at 17:03; Status DC Furosemide (Lasix) 40 mg [id number] IVP Last administered on 01/20/20at 08:27; Start 01/19/20 at 16:45; Stop 01/20/20 at 11:14; Status DC Insulin Human Regular (HumuLIN R VIAL) 10 unit 1X ONCE IV ; Start 01/19/20 at 16:45; Stop 01/19/20 at 17:03; Status DC Sodium Chloride (Normal Saline Flush) 3 ml QSHIFT PRN IV AFTER MEDS AND BLOOD DRAWS; Start 01/19/20 at 17:30 Sodium Chloride 1,000 ml @ 75 mls/hr [id number] IV Last administered on 01/21/20at 22:03; Start 01/19/20 at 17:24 Aspirin (Ecotrin) 81 mg DAILYWBKFT PO Last administered on 01/22/20at 08:14; Start 01/20/20 at 08:00 Ticagrelor (Brilinta) 90 mg BID PO Last administered on 01/22/20at 08:13; Start 01/20/20 at 09:00 Metoprolol Tartrate (Lopressor) 12.5 mg BID PO Last administered on 01/22/20at 08:15; Start 01/19/20 at 21:00 Atorvastatin Calcium (Lipitor) 20 mg QHS PO Last administered on 01/19/20at 21:05; Start 01/19/20 at 21:00; Stop 01/20/20 at 07:58; Status DC Fentanyl Citrate (Fentanyl 2ml Vial) 50 mcg PRN Q1HR PRN IV MODERATE OR SEVERE PAIN; Start 01/19/20 at 17:30 Nitroglycerin (Nitrostat) 0.4 mg PRN Q5MIN PRN SL CHEST PAIN; Start 01/19/20 at 17:30 Amiodarone HCl 150 mg/Dextrose 103 ml @ 600 mls/hr 1X PRN PRN IV FOR VENTRICULAR TACHYCARDIA; Start 01/19/20 at 17:30 Lidocaine HCl (Lidocaine HCl 2% Abboject) 100 mg 1X PRN PRN IV FOR VENTRICULAR TACHYCARDIA; Start 01/19/20 at 17:30 Atropine Sulfate (ATROPINE 0.5mg SYRINGE) 0.5 mg PRN 1X PRN IV BRADYCARDIA; Start 01/19/20 at 17:30 Ondansetron HCl (Zofran) 4 mg PRN Q4HRS PRN IV NAUSEA/VOMITING; Start 01/19/20 at 18:00 Zolpidem Tartrate (Ambien) 5 mg PRN QHS PRN PO INSOMNIA; Start 01/19/20 at 18:00 Acetaminophen (Tylenol) 650 mg PRN Q4HRS PRN PO TEMP OVER 100.4F OR MILD PAIN; Start 01/19/20 at 18:00 Docusate Sodium (Colace) 100 mg PRN BID PRN PO HARD STOOLS; Start 01/19/20 at 18:00 Albuterol Sulfate (Ventolin Neb Soln) 2.5 mg PRN Q4HRS PRN NEB SHORTNESS OF BREATH; Start 01/19/20 at 18:00 Guaifenesin (Robitussin) 200 mg PRN Q4HRS PRN PO COUGH; Start 01/19/20 at 18:00 Lorazepam (Ativan) 0.5 mg PRN Q4HRS PRN PO ANXIETY / AGITATION; Start 01/19/20 at 18:00 Insulin Human Lispro (HumaLOG) 0-7 UNITS TIDWMEALS SQ Last administered on 01/22/20at 08:24; Start 01/20/20 at 08:00 Dextrose (Dextrose 50%-Water Syringe) 12.5 gm PRN Q15MIN PRN IV SEE COMMENTS; Start 01/19/20 at 18:00 Insulin Human Regular (HumuLIN R VIAL) 10 unit 1X ONCE IV ; Start 01/19/20 at 19:00; Stop 01/19/20 at 19:01; Status Cancel Insulin Human Regular (HumuLIN R VIAL) 10 unit 1X ONCE IV Last administered on 01/19/20at 19:06; Start 01/19/20 at 19:00; Stop 01/19/20 at 19:01; Status DC Atorvastatin Calcium (Lipitor) 40 mg QHS PO Last administered on 01/21/20at 21:58; Start 01/20/20 at 21:00 Insulin Glargine (Lantus Syringe) 10 unit QHS SQ Last administered on 01/21/20at 22:02; Start 01/21/20 at 21:00 Active Scripts Active Januvia (Sitagliptin Phosphate) 100 Mg Tablet 1 Tab PO DAILY 90 Days Jardiance (Empagliflozin) 25 Mg Tablet 25 Mg PO DAILY 90 Days Metformin Hcl 1,000 Mg Tablet 1,000 Mg PO DAILYWBKFT 90 Days Aspirin Ec (Aspirin) 81 Mg Tablet.dr 81 Mg PO DAILYWBKFT 30 Days Metoprolol Tartrate 25 Mg Tablet 12.5 Mg PO BID 30 Days Atorvastatin Calcium 40 Mg Tablet 40 Mg PO QHS 30 Days Brilinta (Ticagrelor) 90 Mg Tablet 90 Mg PO BID 30 Days Vitals/I & O Vital Sign - Last 24 Hours 01/21/20 01/21/20 01/21/20 01/21/20 10:48 14:55 18:57 20:00 Temp 97.5 98.2 98.5 97.5 98.2 98.5 Pulse 86 93 104 Resp 18 18 16 B/P (MAP) 135/81 (99) 152/80 (104) 145/99 (114) Pulse Ox 97 97 97 O2 Delivery Room Air Room Air Room Air Room Air 01/21/20 01/21/20 01/22/20 01/22/20 21:59 23:05 03:26 07:07 Temp 98.3 98.0 97.4 98.3 98.0 97.4 Pulse 104 98 82 81 Resp 16 16 16 B/P (MAP) 145/99 123/85 (98) 115/77 (90) 142/92 (109) Pulse Ox 96 96 98 O2 Delivery Room Air Room Air Room Air 01/22/20 01/22/20 08:15 09:33 Pulse 81 B/P (MAP) 142/92 Pulse Ox 98 O2 Delivery Room Air Intake and Output 0 01/21/20 01/21/20 01/22/20 15:00 23:00 07:00 Intake Total 740 ml 700 ml 500 ml Balance 740 ml 700 ml 500 ml Justicifation of Admission Dx: Justifications for Admission: Justification of Admission Dx: Comment: [place]: Acute STEMI EDUARDO CARUSO MD Jan 22, 2020 09:37
[2020-01-22 10:53] VITALS: BP 138/85
--- NOTE | 2020-01-22 11:00 | PDOC ---
PROGRESS NOTES Subjective Subjective Patient denied any chest pain Objective Objective Vital Signs Date Time Temp Pulse Resp B/P (MAP) Pulse Ox O2 Delivery O2 Flow Rate FiO2 01/22/20 10:53 98.5 82 16 138/85 (102) 97 Room Air 98.5 01/22/20 08:05 2.0 Intake and Output 01/22/20 07:00 Intake Total 1940 ml Balance 1940 ml Intake Oral 1940 ml # Voids 3 Physical Exam Abdomen: Normal bowel sounds Heart: Regular rate, Normal S1, Normal S2, No murmurs Extremities: No clubbing, No cyanosis, Normal pulses General: Alert, Oriented X3, Cooperative, No acute distress HEENT: Atraumatic Lungs: Clear to auscultation Skin: No significant lesion Assessment Assessment 1. Acute inferior STEMI s/p PCI/COLIN to RCA. He is presently stable and chest pain-free. Telemetry did not show any significant arrhythmias. 2D echo showed LVEF 45 to 50%. Continue dual antiplatelet therapy. Okay for discharge from cardiac standpoint and follow-up in 1 month. 2. Hypertension: Controlled 3. Hyperlipidemia: Statins 4. DM2: Treat per IM Plan Plan of Care Problems Medical Problems: (1) Hyperglycemia Status: Acute (2) Hyperkalemia Status: Acute (3) ST elevation (STEMI) myocardial infarction Status: Acute (4) Tobacco use Status: Acute Comment Review of Relevant I have reviewed the following items rhiannon (where applicable) has been applied. Labs Laboratory Tests Test 01/21/20 11:14 01/21/20 11:35 01/21/20 12:04 01/21/20 16:51 Glucose (Fingerstick) 289 mg/dL (70-99) 255 mg/dL (70-99) Sodium Level 134 mmol/L (136-145) Potassium Level 4.3 mmol/L (3.5-5.1) Chloride Level 96 mmol/L (98-107) Carbon Dioxide Level 28 mmol/L (21-32) Anion Gap 10 (6-14) Blood Urea Nitrogen 17 mg/dL (8-26) Creatinine 1.2 mg/dL (0.7-1.3) Estimated GFR (Cockcroft-Gault) 66.7 BUN/Creatinine Ratio 14 (6-20) Glucose Level 263 mg/dL (70-99) Calcium Level 8.9 mg/dL (8.5-10.1) Magnesium Level 1.9 mg/dL (1.8-2.4) Total Bilirubin 0.8 mg/dL (0.2-1.0) Aspartate Amino Transf (AST/SGOT) 98 U/L (15-37) Alanine Aminotransferase (ALT/SGPT) 147 U/L (16-63) Alkaline Phosphatase 67 U/L (46-116) Total Protein 7.5 g/dL (6.4-8.2) Albumin 3.9 g/dL (3.4-5.0) Albumin/Globulin Ratio 1.1 (1.0-1.7) Urine Collection Type Unknown Urine Color Yellow Urine Clarity Clear Urine pH 7.0 (<5.0-8.0) Urine Specific [place] 1.015 (1.000-1.030) Urine Protein Negative mg/dL (NEG-TRACE) Urine Glucose (UA) >=1000 mg/dL (NEG) Urine Ketones (Stick) Trace mg/dL (NEG) Urine Blood Negative (NEG) Urine Nitrite Negative (NEG) Urine Bilirubin Negative (NEG) Urine Urobilinogen Dipstick 0.2 mg/dL (0.2 mg/dL) Urine Leukocyte Esterase Negative (NEG) Urine RBC 0 /HPF (0-2) Urine WBC 0 /HPF (0-4) Urine Bacteria 0 /HPF (0-FEW) Test 01/21/20 20:47 01/22/20 07:05 01/22/20 07:45 Glucose (Fingerstick) 262 mg/dL (70-99) 262 mg/dL (70-99) Sodium Level 136 mmol/L (136-145) Potassium Level 4.5 mmol/L (3.5-5.1) Chloride Level 98 mmol/L (98-107) Carbon Dioxide Level 26 mmol/L (21-32) Anion Gap 12 (6-14) Blood Urea Nitrogen 16 mg/dL (8-26) Creatinine 1.2 mg/dL (0.7-1.3) Estimated GFR (Cockcroft-Gault) 66.7 Glucose Level 252 mg/dL (70-99) Calcium Level 8.6 mg/dL (8.5-10.1) Medications Current Medications Insulin Glargine (Lantus Syringe) 10 unit QHS SQ Last administered on 01/21/20at 22:02; Start 01/21/20 at 21:00 Vitals/I & O Vital Sign - Last 24 Hours 01/21/20 01/21/20 01/21/20 01/21/20 14:55 18:57 20:00 21:59 Temp 98.2 98.5 98.2 98.5 Pulse 93 104 104 Resp 18 16 B/P (MAP) 152/80 (104) 145/99 (114) 145/99 Pulse Ox 97 97 O2 Delivery Room Air Room Air Room Air 01/21/20 01/22/20 01/22/20 01/22/20 23:05 03:26 07:07 08:05 Temp 98.3 98.0 97.4 98.3 98.0 97.4 Pulse 98 82 81 Resp 16 16 16 B/P (MAP) 123/85 (98) 115/77 (90) 142/92 (109) Pulse Ox 96 96 98 O2 Delivery Room Air Room Air Room Air Room Air O2 Flow Rate 2.0 01/22/20 01/22/20 01/22/20 08:15 09:33 10:53 Temp 98.5 98.5 Pulse 81 82 Resp 16 B/P (MAP) 142/92 138/85 (102) Pulse Ox 98 97 O2 Delivery Room Air Room Air Intake and Output 01/21/20 01/21/20 01/22/20 15:00 23:00 07:00 Intake Total 740 ml 700 ml 500 ml Balance 740 ml 700 ml 500 ml NO BREWSTER MD Jan 22, 2020 11:00
[2020-01-22 11:05] LABS: AMPHETAMINE/METHAMPHETAMINE NEG (NEG); BARBITURATES NEG (NEG); BENZODIAZEPINES NEG (NEG); CANNABINOIDS NEG (NEG); COCAINE NEG (NEG); METHADONE NEG (NEG); OPIATES NEG (NEG); PHENCYCLIDINE NEG (NEG)
--- NOTE | 2020-01-22 12:16 | NUR ---
Pt discharged home with self care. scripts were electronically sent to Pharmacy. pt was informed and given lots of information on his new medications and his new diet. he was also informed that he willbe needing to go to pul\cardiac rehab on an outpt basis. he was escorted out by the GUEST REQUEST RUNNER, ambulated by himself, picked up by his parents. Ron Nobles RN
--- NOTE | 2020-02-04 16:52 | PDOC3 ---
Discharge Summary Visit Information Date of Admission: Jan 19, 2020 Date of Discharge: Jan 22, 2020 Admitting Diagnosis: STEMI Final Diagnosis Problems Medical Problems: (1) Hyperglycemia Status: Acute (2) Hyperkalemia Status: Acute (3) ST elevation (STEMI) myocardial infarction Status: Acute (4) Tobacco use Status: Acute Brief Hospital Course Allergies Allergies Coded Allergies Type Severity Reaction Last Updated Verified No Known Drug Allergies 01/19/20 No Brief Hospital Course Mr Cook 39 year old male with no significant past medical history except obesity who was in his usual state of health // when he was working outside and he experienced lightheadedness. He thought it was the heat health a day given him the discomfort. He tried to go into a building cool off and come right back outside to work unfortunately patient continued to have lightheadedness and thou ght he was about to lose consciousness. His boss told him to seek medical attention and he started walking towards his truck when his symptoms got worse and he was unable to continue walking so he dropped his stool box managed to get into his truck where he pretty much collapsed. EMS was summoned to the scene and he was transported to our emergency department where he was found to have an acute ST elevation myocardial infarction. The patient is being seen post cardiac catheterization and is in no acute distress. I have discussed the results of his laboratory data his hypoglycemia and renal dysfunction. Reassurance has been provided all of his concerns were addressed to the best of my abilities, his father is at bedside. Patient was taken to the cardiac Executive Producer with Mild disease in the LAD. Eccentric greater than 70% lesion in the right coronary artery. Successful stenting of the right coronary artery with 0% residual. 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 Eccentric greater than 70% lesion in the right coronary artery. Successful stenting of the right coronary artery with 0% residual. ECHO: The Ejection Fraction is 45-50%. There is mild hypokinesis in the inferior and septal jerome. DM mgmt //Dietitian consult. Continue metoprolol and lipitor. reevaluate addition of ACEi or ARB Problem list: Acute inferior STEMI s/p PCI/COLIN to RCA. He is presently stable and chest pain- free. Telemetry did not show any significant arrhythmias. 2D echo showed LVEF 45 to 50%. Continue dual antiplatelet therapy. Okay for discharge from cardiac standpoint and follow-up in 1 month. Hypertension: Controlled Hyperlipidemia: Statins DM2 - A1c 11, started on DPP4, SGLT-2, metformin, refuses insulin and GLP-1 therapy Smoker - Counseled on smoking cessation Hyperkalemia - 6.3 on admit, resolved with glucose control Obesity with a BMI of 36 Hyperglycemia most likely new onset diabetes mellitus Acute renal failure - vasomotor nephropathy Greater than 30 minutes spent on d/c home Discharge Information Condition at Discharge: Improved Follow Up: Weeks (1) Disposition/Orders: D/C to Home Scheduled Aspirin (Aspirin Ec) 81 Mg Tablet.dr, 81 MG PO [id number] for CAD for 30 Days, #30 Ref 3 Prescribed by: RUPAL CROOKS on 01/21/20 1147 Atorvastatin Calcium (Atorvastatin Calcium) 40 Mg Tablet, 40 MG PO QHS for CAD for 30 Days, #30 Ref 3 Prescribed by: RUPAL CROOKS on 01/21/20 1147 Empagliflozin (Jardiance) 25 Mg Tablet, 25 MG PO DAILY for DM2 for 90 Days, #90 Ref 3 Prescribed by: ENRIQUE NEGRETE MD on 01/21/20 1710 Metformin Hcl (Metformin Hcl) 1,000 Mg Tablet, 1,000 MG PO [id number] for ANTI- DIABETIC for 90 Days, #90 Ref 3 Prescribed by: ENRIQUE NEGRETE MD on 01/21/20 1710 Metoprolol Tartrate (Metoprolol Tartrate) 25 Mg Tablet, 12.5 MG PO BID for CAD for 30 Days, #30 Ref 3 Prescribed by: RUPAL CROOKS on 01/21/20 1147 Sitagliptin Phosphate (Januvia) 100 Mg Tablet, 1 TAB PO DAILY for DM2 for 90 Days, #90 Ref 3 Prescribed by: ENRIQUE NEGRETE MD on 01/21/20 1710 Ticagrelor (Brilinta) 90 Mg Tablet, 90 MG PO BID for CAD for 30 Days, #60 Ref 3 Prescribed by: RUPAL CROOKS on 01/21/20 1147 Justicifation of Admission Dx: Justifications for Admission: Justification of Admission Dx: Comment: VT: Acute STEMI ENRIQUE NEGRETE MD Feb 04, 2020 16:52
== END 2020-01-22 16:15 | disposition home or self-care (01) | DRG 247 ==
LOC: ER 15:30 → 1 WEST ICU 16:07 → 2 NORTH 01-20 13:40
PROVIDERS: ADMIT Internal Medicine; ATTEND Internal Medicine
PROC: 027034Z Dilation of Coronary Artery, One Artery with Drug-eluting Intraluminal Device, Percutaneous Approach (ICD-10-PCS; principal; 2020-01-19)
PROC: 4A023N7 Measurement of Cardiac Sampling and Pressure, Left Heart, Percutaneous Approach (ICD-10-PCS; 2020-01-19)
PROC: B2111ZZ Fluoroscopy of Multiple Coronary Arteries using Low Osmolar Contrast (ICD-10-PCS; 2020-01-19)
DX: I21.19 ST elevation (STEMI) myocardial infarction involving other coronary artery of inferior wall (principal); N17.9 Acute kidney failure, unspecified; E11.65 Type 2 diabetes mellitus with hyperglycemia; E66.01 Morbid (severe) obesity due to excess calories; E78.5 Hyperlipidemia, unspecified; E87.5 Hyperkalemia; I10 Essential (primary) hypertension; I25.10 Atherosclerotic heart disease of native coronary artery without angina pectoris; I77.819 Aortic ectasia, unspecified site; F17.210 Nicotine dependence, cigarettes, uncomplicated; I25.5 Ischemic cardiomyopathy; Z79.4 Long term (current) use of insulin; Z82.49 Family history of ischemic heart disease and other diseases of the circulatory system; Z79.899 Other long term (current) drug therapy; Z68.34 Body mass index [BMI] 34.0-34.9, adult
CPT/HCPCS: 36415; 80048; 80053; 80061; 80076; 80307; 81001; 82962; 83036; 83735; 83880; 84443; 84484; 84681; 85025; 85610; 85730; 92928; 93005; 93306; 93454; 96374; 99152; 99153; 99285; C1725; C1760; C1769; C1874; C1887; C1892; J0583; J0610; J1644; J1815; J1940; J2250; J3010; J3490; J7030; Q9967; C1713; C1771; G0378